=== PATIENT | male | born 1995 | race African-American/Black ===

== ENCOUNTER 2018-11-09 13:32 | Inpatient (IN) | payer MEDICARE ==
[2018-11-09] MEDS ORDERED: ASPIRIN 81 MG TABLET, CHEWABLE PO ONE (13:45)
[2018-11-09] MEDS ORDERED: ONDANSETRON 4 MG TAB.RAPDIS PO ONE (13:48)
--- NOTE | 2018-11-09 13:59 | ER Document Report ---
ED Medical Screen (RME) - General Chief Complaint: Abdominal Pain Stated Complaint: STOMACH PAIN/VOMITING / HIGH BLOOD SUGAR Time Seen by Provider: 11/09/18 13:48 Mode of Arrival: Wheelchair Information source: Patient, Relative Notes: 23-year-old male presented to ED for shortness of breath diaphoresis upper abdominal pain. He has a history of pancreatitis diabetes type 1 and AK in June which is a learning disability. He is with his sister. He is here visiting his sister while her is deployed. He states he has a long history of pancreatitis and ends up in the hospital about every 6 months. He has not had any surgeries. He does live with his mother due to his disabilities. Patient is alert oriented respirations regular and unlabored speaking in full sentences at this time. I have greeted and performed a rapid initial assessment of this patient. A comprehensive ED assessment and evaluation of the patient, analysis of test results and completion of medical decision making process will be conducted by an additional ED providers. Physical Exam - Vital signs Vitals: Temp Pulse Resp BP Pulse Ox 97.9 F 127 H 18 135/109 H 97 11/09/18 13:42 11/09/18 13:42 11/09/18 13:42 11/09/18 13:42 11/09/18 13:42 Course - Vital Signs Vital signs: Temp Pulse Resp BP Pulse Ox 97.9 F 127 H 18 135/109 H 97 11/09/18 13:42 11/09/18 13:42 11/09/18 13:42 11/09/18 13:42 11/09/18 13:42
[2018-11-09] MEDS ORDERED: NORMAL SALINE 1000 ML 1,000 ML IV ONE ×4 (14:24→18:06)
[2018-11-09] MEDS ORDERED: MORPHINE SULFATE 10 MG/ML INJ IV ONE (14:48)
[2018-11-09] MEDS ORDERED: ONDANSETRON HCL INJ/PF 4 MG/2 ML SDV IV ONE (14:48)
[2018-11-09 14:51] LABS: ABSOLUTE LYMPHOCYTES (AUTO) 1.8 10^3/uL (0.5-4.7); ABSOLUTE MONOCYTES (AUTO) 0.7 10^3/uL (0.1-1.4); ABSOLUTE NEUT (AUTO) 11.5 10^3/uL (1.7-8.2); BASOPHILS % (AUTO) 0.3 % (0-2); EOSINOPHILS % (AUTO) 0.2 % (0-6); HEMOGLOBIN 14.9 g/dL (13.5-17.0); LYMPHOCYTES % (AUTO) 12.8 % (13-45); MEAN CORPUSCULAR HEMOGLOBIN 26.1 pg (27.0-33.4); MEAN CORPUSCULAR HGB CONC 33.1 g/dL (32.0-36.0); MEAN CORPUSCULAR VOLUME 79 fl (80-97); MONOCYTES % (AUTO) 5.3 % (3-13); PLATELET COUNT 484 10^3/uL (150-450); RED BLOOD COUNT 5.71 10^6/uL (4.35-5.55); RED CELL DISTRIBUTION WIDTH 14.9 % (11.5-14.0); SEGMENTED NEUTROPHILS % (AUTO) 81.4 % (42-78); TOTAL CELLS COUNTED % (AUTO) 100 %; WHITE BLOOD COUNT 14.2 10^3/uL (4.0-10.5)
[2018-11-09 14:53] LABS: VENOUS BLOOD BASE EXCESS -7.9 mmol/L; VENOUS BLOOD HCO3 17.4 mmol/L (20-32); VENOUS BLOOD PCO2 35.3 mmHg (35-63); VENOUS BLOOD PH 7.31 (7.30-7.42)
[2018-11-09 15:00] LABS: INTERNATIONAL RATION (INR) 1.03; PROTHROMBIN TIME 13.6 SEC (11.4-15.4)
[2018-11-09 15:01] LABS: PARTIAL THROMBOPLASTIN TIME 31.9 SEC (23.5-35.8)
[2018-11-09 15:12] LABS: ALBUMIN 5.2 g/dL (3.5-5.0); ALKALINE PHOSPHATASE 121 U/L (38-126); ASPARTATE AMINO TRANSFERASE 19 U/L (17-59); BILIRUBIN,DIRECT 0.2 mg/dL (0.0-0.4); BILIRUBIN,TOTAL 0.7 mg/dL (0.2-1.3); BLOOD UREA NITROGEN 14 mg/dL (7-20); CALCIUM 10.7 mg/dL (8.4-10.2); CARBON DIOXIDE 14 mmol/L (22-30); CHLORIDE 92 mmol/L (98-107); CREATINE KINASE 117 U/L (55-170); POTASSIUM 5.3 mmol/L (3.6-5.0); TOTAL PROTEIN 9.7 g/dL (6.3-8.2)
[2018-11-09 15:18] LABS: ANION GAP 29 (5-19)
[2018-11-09 15:19] LABS: GLUCOSE 599 mg/dL (75-110)
[2018-11-09 15:22] LABS: CREATINE KINASE MB 0.32 ng/mL (<4.55)
[2018-11-09 15:23] LABS: TROPONIN I < 0.012 ng/mL
--- NOTE | 2018-11-09 15:25 | RADIOLOGY REPORT (SQ) ---
EXAM DESCRIPTION: CHEST SINGLE VIEW COMPLETED DATE/TIME: 11/09/2018 3:17 pm REASON FOR STUDY: chest pain COMPARISON: None. EXAM PARAMETERS: NUMBER OF VIEWS: One view. TECHNIQUE: Single frontal radiographic view of the chest acquired. RADIATION DOSE: NA LIMITATIONS: None. FINDINGS: LUNGS AND PLEURA: Low lung volumes. No opacities, masses or pneumothorax. No pleural effu tisha. MEDIASTINUM AND HILAR STRUCTURES: No masses. Contour normal. HEART AND VASCULAR STRUCTURES: Heart normal in size. Normal vasculature. BONES: No acute findings. HARDWARE: None in the chest. OTHER: No other significant finding. IMPRESSION: LOW LUNG VOLUMES. NO ACUTE RADIOGRAPHIC FINDING IN THE CHEST. TECHNICAL DOCUMENTATION: JOB ID: [id number] [employer]- All Rights Reserved Reading location - IP/workstation name: [email or web address]
--- NOTE | 2018-11-09 15:32 | ER Document Report ---
ED General - General Chief Complaint: Abdominal Pain Stated Complaint: STOMACH PAIN/VOMITING / HIGH BLOOD SUGAR Time Seen by Provider: 11/09/18 13:48 Mode of Arrival: Wheelchair - HPI Notes: This is a 23-year-old gentleman who presents today with a complaint of "pancreatitis." He describes epigastric and right upper quadrant abdominal pain has been going on since earlier today. Also has had some nausea and vomiting and a slight nonproductive cough. Patient notes that he has history of hepatitis and gets flareups every now and then. Patient sister notes that they have been doing lots of exercising recently, including prolapse and abdominal crunches. She wonders if that is the cause of his pain. He denies any fever or chills. He denies any diarrhea or constipation. He describes his symptoms as moderate. There are no obvious aggravating or relieving factors. - Related Data Allergies/Adverse Reactions: No Known Allergies Allergy (Unverified 11/09/18 14:02) Past Medical History - General Information source: Patient, Relative - Social History Smoking Status: Never Smoker Frequency of alcohol use: None Drug Abuse: None Family History: Reviewed & Not Pertinent Patient has suicidal ideation: No Patient has homicidal ideation: No Review of Systems - Review of Systems Constitutional: denies: Fever Cardiovascular: denies: Chest pain, Palpitations Respiratory: Cough Gastrointestinal: Abdominal pain, Nausea. denies: Diarrhea, Vomiting, Constipation -: Yes All other systems reviewed and negative Physical Exam - Vital signs Vitals: Temp Pulse Resp BP Pulse Ox 97.9 F 127 H 18 135/109 H 97 11/09/18 13:42 11/09/18 13:42 11/09/18 13:42 11/09/18 13:42 11/09/18 13:42 - General General appearance: Appears well, Alert - Respiratory Respiratory status: No respiratory distress Chest status: Nontender Breath sounds: Normal Chest palpation: Normal - Cardiovascular Rhythm: Regular, Tachycardia Heart sounds: Normal auscultation Murmur: No - Abdominal Inspection: Normal Distension: No distension Bowel sounds: Normal Tenderness: Tender - There is epigastric and right upper quadrant tenderness. No guarding or rebound.. No: McBurney's point, Guarding, Rebound Organomegaly: No organomegaly - Back Back: Normal, Nontender - Neurological Neuro grossly intact: Yes Cognition: Normal Orientation: AAOx4 Connor Coma Scale Eye Opening: Spontaneous [place] Coma Scale Verbal: Oriented [place] Coma Scale Motor: Obeys Commands Connor Coma Scale Total: 15 Speech: Normal Motor strength normal: LUE, RUE, LLE, RLE Sensory: Normal - Psychological Associated symptoms: Normal affect, Normal mood - Skin Skin Temperature: Warm Skin Moisture: Dry Skin Color: Normal Course - Re-evaluation Re-evalutation: 11/09/18 15:32 Differential diagnosis includes acute parotitis versus cholelithiasis versus cholecystitis versus DKA versus dehydration. Will check basic labs. Will also get a gallbladder ultrasound. EKG shows sinus tachycardia at [address] segment depression. No acute injury pattern. 11/09/18 17:18 Patient reevaluated. Patient is doing much better. Labs and imaging reviewed and discussed. Patient's care discussed with Dr. Montenegro. Will admit. - Vital Signs Vital signs: Temp Pulse Resp BP Pulse Ox 97.9 F 127 H 22 H 130/69 H 98 11/09/18 13:42 11/09/18 13:42 11/09/18 17:01 11/09/18 17:01 11/09/18 17:01 - Laboratory Result Diagrams: 11/09/18 14:30 11/09/18 14:30 Laboratory results interpreted by me: 11/09/18 11/09/18 11/09/18 14:24 14:30 14:30 WBC 14.2 H RBC 5.71 H MCV 79 L MCH 26.1 L RDW 14.9 H Plt Count 484 H Lymph % (Auto) 12.8 L Absolute Neuts (auto) 11.5 H Seg Neutrophils % 81.4 H VBG HCO3 Sodium 134.6 L Potassium 5.3 H Chloride 92 L Carbon Dioxide 14 L Anion Gap 29 H Creatinine 1.26 H Glucose 599 H* POC Glucose 537 H* Calcium 10.7 H Total Protein 9.7 H Albumin 5.2 H Lipase Urine Protein Urine Glucose (UA) Urine Ketones Urine Blood 11/09/18 11/09/18 11/09/18 14:30 14:30 14:59 WBC RBC MCV MCH RDW Plt Count Lymph % (Auto) Absolute Neuts (auto) Seg Neutrophils % VBG HCO3 17.4 L Sodium Potassium Chloride Carbon Dioxide Anion Gap Creatinine Glucose POC Glucose Calcium Total Protein Albumin Lipase 1823.5 H Urine Protein >=500 H Urine Glucose (UA) >=500 H Urine Ketones 80 H Urine Blood SMALL H 11/09/18 11/09/18 16:32 17:28 WBC RBC MCV MCH RDW Plt Count Lymph % (Auto) Absolute Neuts (auto) Seg Neutrophils % VBG HCO3 Sodium Potassium Chloride Carbon Dioxide Anion Gap Creatinine Glucose POC Glucose 466 H* 331 H Calcium Total Protein Albumin Lipase Urine Protein Urine Glucose (UA) Urine Ketones Urine Blood Discharge - Discharge Clinical Impression: Hyperglycemia Acute pancreatitis Qualifiers: Pancreatitis type: unspecified pancreatitis type Acute pancreatitis complicatio n: unspecified Qualified Code(s): K85.90 - Acute pancreatitis without necrosis or infection, unspecified Condition: Stable Disposition: ADMITTED INPATIENT Admitting Provider: Lan (Hospitalist) Unit Admitted: Telemetry
[2018-11-09] MEDS ORDERED: INSULIN REG, HUMAN 100 UNIT/ML 3 ML VIAL (PYX) IV ONE (15:44)
[2018-11-09 15:48] LABS: APPEARANCE,URINE CLEAR; BILIRUBIN,URINE NEGATIVE (NEGATIVE); COLOR,URINE YELLOW; GLUCOSE, URINE >=500 mg/dL (NEGATIVE); KETONES,URINE 80 mg/dL (NEGATIVE); LEUKOCYTE ESTERASE,URINE NEGATIVE (NEGATIVE); NITRITE,URINE NEGATIVE (NEGATIVE); PROTEIN,URINE >=500 mg/dL (NEGATIVE); URINE SPECIFIC GRAVITY 1.024; UROBILINOGEN,URINE NEGATIVE mg/dL (<2.0)
--- NOTE | 2018-11-09 16:52 | RADIOLOGY REPORT (SQ) ---
EXAM DESCRIPTION: U/S ABDOMEN LIMITED W/O DOP COMPLETED DATE/TIME: 11/09/2018 4:36 pm REASON FOR STUDY: RUQ pain ? choly COMPARISON: None. TECHNIQUE: Dynamic and static grayscale images acquired of the abdomen and recorded on PACS. Additio nal selected color Doppler and spectral images recorded. LIMITATIONS: None. FINDINGS: PANCREAS: Unable to visualize the pancreas due to overlying bowel gas LIVER: Increased echogenicity of the hepatic parenchyma. LIVER VASCULATURE: Unable to visualize the portal vein. GALLBLADDER: The gallbladder wall measures 2.3 mm in thickness. There is no pericholecystic fluid. There is questionable sludge within the gallbladder lumen. ULTRASOUND-DETECTED GONZALEZ'S SIGN: Positive. INTRAHEPATIC DUCTS AND COMMON DUCT: Unable to visualize the common bile duct. INFERIOR VENA CAVA: Unable to visualize the inferior vena cava. AORTA: No aneurysm. RIGHT KIDNEY: The right kidney measures 9.3 cm in length. There is no hydronephrosis. PERITONEAL AND RIGHT PLEURAL SPACE: No ascites or effusions. OTHER: No other findings. IMPRESSION: Limited right upper quadrant ultrasound in part due to the patient's body habitus and in creased echogenicity of the hepatic parenchyma that attenuates the ultrasound waves. The Gonzalez's si gn is positive, however there are no other ancillary findings to support a diagnosis of acute cholecy stitis such as gallbladder wall thickening or pericholecystic fluid. Given the limitations of the ul trasound if clinical findings are also equivocal for acute cholecystitis then correlation with HIDA i s recommended. TECHNICAL DOCUMENTATION: JOB ID: [id number] [employer]- All Rights Reserved Reading location - IP/workstation name: [email or web address]
[2018-11-09] MEDS ORDERED: ACETAMINOPHEN 325 MG TABLET PO PRN (18:00)
[2018-11-09] MEDS ORDERED: MAG HYDROX/AL HYDROX/SIMETH SUSP 30 ML UDCUP PO PRN (18:00)
[2018-11-09] MEDS ORDERED: GLUCAGON,HUMAN RECOMB 1 MG INJ SUBCUT PRN (18:00)
[2018-11-09] MEDS ORDERED: ONDANSETRON HCL INJ/PF 4 MG/2 ML SDV IV PRN (18:00)
[2018-11-09] MEDS ORDERED: DEXTROSE 50%-WATER 25 GM/50 ML DISP.SYRIN IV PRN ×2 (18:00)
[2018-11-09] MEDS ORDERED: DEXTROSE 40% GEL 15 GM TUBE PO PRN ×2 (18:00)
--- NOTE | 2018-11-09 18:36 | PDOC H&P ---
History of Present Illness Admission Date/PCP: 11/09/18 17:37 RONDA LOCKE MD Patient complains of: Abdominal pain, nausea and vomiting over the last 24 hours History of Present Illness: SUNITA SOLIS JR is a 23 year old male with a history of diabetes, hypertension, hyperlipidemia and chronic kidney failure who presents with epigastric abdominal pain, nausea and vomiting. He was noted to have an elevated lipase level at 1823. He has had pancreatitis in the past. He was not admitted to this hospital so no old records exist. He has received several liters of IV fluid and states that the pain is improved. His Accu-Chek was greater than 500 on admission as well. He was referred to the hospital service for admission. Past Medical History Cardiac Medical History: Reports: Myocardial Infarction, Hyperlipidema, H ypertension Pulmonary Medical History: Denies: Asthma, Chronic Obstructive Pulmonary Disease (COPD), Respiratory Failure EENT Medical History: Denies: Eyes, Ears, Nose, Throat Neurological Medical History: Denies: Hemorrhagic CVA, Ischemic CVA Endocrine Medical History: Reports: Diabetes Mellitus Type 1 Renal/ Medical History: Reports: Chronic Kidney Disease Malignancy Medical History: Reports: None GI Medical History: Reports: Other - Possible steatohepatitis Musculoskeltal Medical History: Denies: Arthritis, Fibromyalgia Skin Medical History: Reports: Other - Dry skin Denies: Eczema, Psoriasis Psychiatric Medical History: Reports: Other - Possible developmental delay Denies: Alcohol Dependency, Bipolar Disorder Traumatic Medical History: Reports: None Hematology: Denies: Anemia, Sickle Cell Disease, Bleeding Tendencies Infectious Medical History: Reports: None Past Surgical History Past Surgical History: Reports: Other - Gastroscopy Social History Information Source: Patient Lives with: Family - He lives with his uncle Smoking Status: Never Smoker Frequency of Alcohol Use: None Hx Recreational Drug Use: No Hx Prescription Drug Abuse: No - Advance Directive Resuscitation Status: Full Code Surrogate healthcare decision maker:: His mother would make medical decisions Family History Family History: Reviewed & Not Pertinent, DM, Hypertension Parental Family History Reviewed: Yes Children Family History Reviewed: NA Sibling(s) Family History Reviewed.: Yes Medication/Allergy Allergies/Adverse Reactions: No Known Allergies Allergy (Unverified 11/09/18 14:02) Review of Systems Constitutional: ABSENT: chills, fever(s), night sweats Eyes: ABSENT: visual disturbances Ears: ABSENT: hearing changes Nose, Mouth, and Throat: ABSENT: mouth pain, sore throat Cardiovascular: ABSENT: chest pain, edema, palpitations Respiratory: ABSENT: cough, dyspnea, hemoptysis, sputum Gastrointestinal: PRESENT: abdominal pain - Epigastric, diarrhea - Intermittent, nausea, vomiting. ABSENT: constipation, dysphagia Genitourinary: ABSENT: difficulty urinating, dysuria, hematuria Musculoskeletal: ABSENT: deformity, joint swelling, muscle weakness Integumentary: ABSENT: lesions Neurological: ABSENT: abnormal movements, abnormal speech, memory loss Psychiatric: ABSENT: anxiety, depression Endocrine: ABSENT: cold intolerance, flushing, heat intolerance Hematologic/Lymphatic: ABSENT: easy bleeding, easy bruising Allergic/Immunologic: ABSENT: seasonal rhinorrhea Physical Exam Vital Signs: Temp Pulse Resp BP Pulse Ox 97.9 F 127 H 22 H 130/69 H 98 11/09/18 13:42 11/09/18 13:42 11/09/18 17:01 11/09/18 17:01 11/09/18 17:01 Intake & Output 11/08/18 11/09/18 11/10/18 06:59 06:59 06:59 Intake Total 1999 Balance 1999 Weight 114.2 kg General appearance: PRESENT: no acute distress, cooperative, obese, well- developed Head exam: PRESENT: atraumatic, normocephalic Eye exam: PRESENT: conjunctiva pink, EOMI. ABSENT: scleral icterus Ear exam: PRESENT: normal external ear exam. ABSENT: bleeding, drainage Mouth exam: PRESENT: moist, tongue midline Teeth exam: ABSENT: dental tenderness, edentulous Respiratory exam: PRESENT: clear to auscultation kirt, symmetrical, unlabored. ABSENT: prolonged expiratory phas, rales, rhonchi, tachypnea, wheezes Cardiovascular exam: PRESENT: RRR, +S1, +S2 Pulses: PRESENT: normal radial pulses, normal dorsalis pedis pul GI/Abdominal exam: PRESENT: diminished bowel sounds, soft, tenderness - Across the upper abdomen especially the epigastrium. ABSENT: distended, firm, guarding Rectal exam: PRESENT: deferred Gentrourinary exam: ABSENT: indwelling catheter Extremities exam: PRESENT: full ROM. ABSENT: joint swelling, pedal edema, tenderness Musculoskeletal exam: PRESENT: ambulatory, normal inspection. ABSENT: deformity Neurological exam: PRESENT: alert, awake, oriented to person, oriented to place, oriented to situation, CN II-XII grossly intact Psychiatric exam: PRESENT: flat affect. ABSENT: agitated, anxious Focused psych exam: ABSENT: delusional, restlessness Skin exam: PRESENT: dry, warm. ABSENT: rash Results Laboratory Results: 11/09/18 14:30 11/09/18 14:30 11/09/18 11/09/18 11/09/18 14:30 14:30 14:30 WBC 14.2 H RBC 5.71 H Hgb 14.9 Hct 45.0 MCV 79 L MCH 26.1 L MCHC 33.1 RDW 14.9 H Plt Count 484 H Seg Neutrophils % 81.4 H VBG pH VBG pCO2 VBG HCO3 VBG Base Excess Sodium 134.6 L Potassium 5.3 H Chloride 92 L Carbon Dioxide 14 L Anion Gap 29 H BUN 14 Creatinine 1.26 H Est GFR ( Amer) > 60 Glucose 599 H* Calcium 10.7 H Magnesium 2.1 Total Bilirubin 0.7 AST 19 Alkaline Phosphatase 121 Total Protein 9.7 H Albumin 5.2 H Lipase TSH 4.39 Urine Color Urine Appearance Urine pH Ur Specific [place] Urine Protein Urine Glucose (UA) Urine Ketones Urine Blood Urine Nitrite Ur Leukocyte Esterase Urine WBC (Auto) Urine RBC (Auto) 11/09/18 11/09/18 11/09/18 14:30 14:30 14:59 WBC RBC Hgb Hct MCV MCH MCHC RDW Plt Count Seg Neutrophils % VBG pH 7.31 VBG pCO2 35.3 VBG HCO3 17.4 L VBG Base Excess -7.9 Sodium Potassium Chloride Carbon Dioxide Anion Gap BUN Creatinine Est GFR ( Amer) Glucose Calcium Magnesium Total Bilirubin AST Alkaline Phosphatase Total Protein Albumin Lipase 1823.5 H TSH Urine Color YELLOW Urine Appearance CLEAR Urine pH 6.0 Ur Specific [place] 1.024 Urine Protein >=500 H Urine Glucose (UA) >=500 H Urine Ketones 80 H Urine Blood SMALL H Urine Nitrite NEGATIVE Ur Leukocyte Esterase NEGATIVE Urine WBC (Auto) 2 Urine RBC (Auto) 0 11/09/18 11/09/18 14:30 14:30 Creatine Kinase 117 CK-MB (CK-2) 0.32 Troponin I < 0.012 Impressions: Chest X-Ray 11/09/18 13:45 IMPRESSION: LOW LUNG VOLUMES. NO ACUTE RADIOGRAPHIC FINDING IN THE CHEST. Abdomen Ultrasound 11/09/18 14:48 IMPRESSION: Limited right upper quadrant ultrasound in part due to the patient's body habitus and increased echogenicity of the hepatic parenchyma that attenuates the ultrasound waves. The Gonzalez's sign is positive, however there are no other ancillary findings to support a diagnosis of acute cholecystitis such as gallbladder wall thickening or pericholecystic fluid. Given the limitations of the ultrasound if clinical findings are also equivocal for acute cholecystitis then correlation with HIDA is recommended. Assessment and Plan - Diagnosis (1) Acute pancreatitis Qualifiers: Pancreatitis type: unspecified pancreatitis type Acute pancreatitis complication: unspecified Qualified Code(s): K85.90 - Acute pancreatitis without necrosis or infection, unspecified Is this a current diagnosis for this admission?: Yes Plan: 11/09/2018-the right upper quadrant ultrasound showed possible sludge in the gallbladder but the gallbladder wall was not thickened. There are no dilated ducts although visualization was suboptimal. There was increased echogenicity of the hepatic parenchyma. Bowel gas did not allow visualization of the pancreas. The patient did have an elevated lipase and slightly elevated white blood cell count. He reports that he has had pancreatitis in the past. We will keep the patient n.p.o. except for ice chips and sips of water with medication. IV fluid will be administered. We will recheck laboratory studies in the morning. (2) Diabetes mellitus type 1, uncontrolled Qualifiers: Glycemic state: with hyperglycemia Qualified Code(s): E10.65 - Type 1 diabetes mellitus with hyperglycemia Is this a current diagnosis for this admission?: Yes Plan: 11/09/2018-the patient is on insulin glargine 65 units twice daily. I will put him on a lower dose of Lantus (15 units twice daily) as he is n.p.o. He will also be on a sliding scale with Accu-Cheks every 6 hours. With a glucose of 500 it is very likely that his diabetes is poorly controlled. If his symptoms are improved we will start an oral diet tomorrow and increase his insulin glargine accordingly. He also takes NovoLog at home. We will use Humalog for sliding scale. (3) Hypertension Qualifiers: Hypertension type: essential hypertension Qualified Code(s): I10 - Essential (primary) hypertension Is this a current diagnosis for this admission?: Yes Plan: 11/09/2018-the patient is on amlodipine 5 mg daily and we will continue the same. We will monitor him on telemetry with vital signs every 4 hours. (4) Hyperlipidemia Qualifiers: Hyperlipidemia type: moderate mixed hyperlipidemia not requiring statin therapy Qualified Code(s): E78.2 - Mixed hyperlipidemia Is this a current diagnosis for this admission?: Yes Plan: 11/09/2018-continue atorvastatin 10 mg daily. The patient may have steatohepatitis due to increased echogenicity of the liver. This can be further worked up as an outpatient. (5) Tachycardia Is this a current diagnosis for this admission?: Yes Plan: 11/09/2018-most likely due to hypovolemia. With several liters of IV fluid his heart rate has improved and is between 101 110 at this time. We will monitor him on telemetry. (6) Hyperkalemia Is this a current diagnosis for this admission?: Yes Plan: 11/09/2018-his potassium is only slightly elevated. With the aggressive fluid challenge this should dilute back into the normal range. We will check his serum potassium in the morning. (7) Chronic kidney disease, stage II (mild) Is this a current diagnosis for this admission?: Yes Plan: 11/09/2018-the patient reports that he follows with a kidney doctor. I will reach out to the local nephrology office tomorrow. I have no old laboratory studies to compare but at this time it is likely stage II chronic kidney disease with a GFR greater than 60. - Time Time Spent with patient: 35 or more minutes Medications reviewed and adjusted accordingly: Yes Anticipated discharge: Home Within: within 48 hours
[2018-11-09] MEDS ORDERED: MORPHINE SULFATE 10 MG/ML INJ IV PRN ×4 (20:26→20:39)
--- NOTE | 2018-11-09 20:52 | EKG REPORT ---
SEVERITY:- ABNORMAL ECG - SINUS TACHYCARDIA BORDERLINE Q WAVES IN INFERIOR LEADS INFERIOR Q WAVES, PROBABLY NORMAL VARIATION BORDERLINE T ABNORMALITIES, LATERAL LEADS BORDERLINE ST ELEVATION, ANTERIOR LEADS : Confirmed by: Itzel Irving MD 09-Nov-2018 20:52:29
[2018-11-09] MEDS ORDERED: ATORVASTATIN CALCIUM 10 MG TABLET PO SCH (22:00)
[2018-11-09] MEDS: HEPARIN SOD (PORCINE) 5,000 UNIT/ML 1 ML VIAL SUBCUT SCH (22:35)
[2018-11-09] MEDS: INSULIN GLARGINE,HUM.REC.ANLOG 1,000 UNIT/10 ML VIAL SUBCUT SCH (22:36)
[2018-11-09] MEDS: INSULIN LISPRO 100 UNIT/ML 3 ML VIAL SUBCUT SCH (23:56)
[2018-11-10 04:29] LABS: BLOOD UREA NITROGEN 11 mg/dL (7-20); CALCIUM 9.6 mg/dL (8.4-10.2); CHLORIDE 103 mmol/L (98-107); GLUCOSE 209 mg/dL (75-110)
[2018-11-10 04:36] LABS: ANION GAP 13 (5-19)
[2018-11-10 04:38] LABS: CARBON DIOXIDE 23 mmol/L (22-30); POTASSIUM 4.2 mmol/L (3.6-5.0); TRIGLYCERIDES 1427 mg/dL (<150)
[2018-11-10 04:39] LABS: DIRECT LDL 46 mg/dL (<100)
[2018-11-10] MEDS: HEPARIN SOD (PORCINE) 5,000 UNIT/ML 1 ML VIAL SUBCUT SCH ×3 (06:04→22:06)
[2018-11-10] MEDS: PANTOPRAZOLE SODIUM 40 MG TABLET.DR PO SCH (06:05)
[2018-11-10] MEDS: INSULIN LISPRO 100 UNIT/ML 3 ML VIAL SUBCUT SCH ×4 (06:05→23:49)
--- NOTE | 2018-11-10 10:19 | PDOC PROGRESS REPORT ---
Subjective Progress Note for:: 11/10/18 Subjective:: Patient is feeling much better. I will advance his diet. He has marked hypertriglyceridemia and this is the most likely cause of his recurrent pancreatitis. Reason For Visit: PANCREATITIS Physical Exam Vital Signs: Temp Pulse Resp BP Pulse Ox 97.4 F 85 18 133/54 H 95 11/10/18 04:07 11/10/18 07:00 11/10/18 04:07 11/10/18 04:07 11/10/18 04:07 Intake & Output 11/09/18 11/10/18 11/11/18 06:59 06:59 06:59 Intake Total 3520 Output Total 580 Balance 2940 Weight 101.2 kg General appearance: PRESENT: no acute distress, cooperative, well-developed Head exam: PRESENT: atraumatic, normocephalic Respiratory exam: PRESENT: clear to auscultation kirt, symmetrical, unlabored. ABSENT: rales, rhonchi, tachypnea, wheezes Cardiovascular exam: PRESENT: RRR, +S1, +S2 GI/Abdominal exam: PRESENT: normal bowel sounds, soft. ABSENT: distended, tenderness Extremities exam: ABSENT: joint swelling, pedal edema Musculoskeletal exam: PRESENT: ambulatory, normal inspection Neurological exam: PRESENT: alert, awake, oriented to person, oriented to place, oriented to situation, CN II-XII grossly intact Psychiatric exam: PRESENT: flat affect. ABSENT: agitated, anxious Focused psych exam: ABSENT: delusional, restlessness Results Laboratory Results: 11/10/18 07:06 11/10/18 03:46 11/09/18 11/09/18 11/09/18 14:30 14:30 14:30 WBC 14.2 H RBC 5.71 H Hgb 14.9 Hct 45.0 MCV 79 L MCH 26.1 L MCHC 33.1 RDW 14.9 H Plt Count 484 H Seg Neutrophils % 81.4 H VBG pH VBG pCO2 VBG HCO3 VBG Base Excess Sodium 134.6 L Potassium 5.3 H Chloride 92 L Carbon Dioxide 14 L Anion Gap 29 H BUN 14 Creatinine 1.26 H Est GFR ( Amer) > 60 Glucose 599 H* Calcium 10.7 H Magnesium 2.1 Total Bilirubin 0.7 AST 19 Alkaline Phosphatase 121 Total Protein 9.7 H Albumin 5.2 H Triglycerides Cholesterol LDL Cholesterol Direct HDL Cholesterol Lipase TSH 4.39 Urine Color Urine Appearance Urine pH Ur Specific [place] Urine Protein Urine Glucose (UA) Urine Ketones Urine Blood Urine Nitrite Ur Leukocyte Esterase Urine WBC (Auto) Urine RBC (Auto) 11/09/18 11/09/18 11/09/18 14:30 14:30 14:59 WBC RBC Hgb Hct MCV MCH MCHC RDW Plt Count Seg Neutrophils % VBG pH 7.31 VBG pCO2 35.3 VBG HCO3 17.4 L VBG Base Excess -7.9 Sodium Potassium Chloride Carbon Dioxide Anion Gap BUN Creatinine Est GFR ( Amer) Glucose Calcium Magnesium Total Bilirubin AST Alkaline Phosphatase Total Protein Albumin Triglycerides Cholesterol LDL Cholesterol Direct HDL Cholesterol Lipase 1823.5 H TSH Urine Color YELLOW Urine Appearance CLEAR Urine pH 6.0 Ur Specific [place] 1.024 Urine Protein >=500 H Urine Glucose (UA) >=500 H Urine Ketones 80 H Urine Blood SMALL H Urine Nitrite NEGATIVE Ur Leukocyte Esterase NEGATIVE Urine WBC (Auto) 2 Urine RBC (Auto) 0 11/10/18 11/10/18 11/10/18 03:46 03:46 07:06 WBC Cancelled 7.9 RBC Cancelled 4.72 Hgb Cancelled 12.2 L D Hct Cancelled 36.3 L MCV Cancelled 77 L MCH Cancelled 25.9 L MCHC Cancelled 33.6 RDW Cancelled 14.8 H Plt Count Cancelled 354 Seg Neutrophils % 54.8 VBG pH VBG pCO2 VBG HCO3 VBG Base Excess Sodium 138.6 Potassium 4.2 D Chloride 103 Carbon Dioxide 23 Anion Gap 13 BUN 11 Creatinine 0.79 Est GFR ( Amer) > 60 Glucose 209 H Calcium 9.6 Magnesium Total Bilirubin AST Alkaline Phosphatase Total Protein Albumin Triglycerides 1427 H Cholesterol 293.80 H LDL Cholesterol Direct 46 HDL Cholesterol 25 L Lipase 782.9 H TSH Urine Color Urine Appearance Urine pH Ur Specific [place] Urine Protein Urine Glucose (UA) Urine Ketones Urine Blood Urine Nitrite Ur Leukocyte Esterase Urine WBC (Auto) Urine RBC (Auto) 11/09/18 11/09/18 14:30 14:30 Creatine Kinase 117 CK-MB (CK-2) 0.32 Troponin I < 0.012 Impressions: Chest X-Ray 11/09/18 13:45 IMPRESSION: LOW LUNG VOLUMES. NO ACUTE RADIOGRAPHIC FINDING IN THE CHEST. Abdomen Ultrasound 11/09/18 14:48 IMPRESSION: Limited right upper quadrant ultrasound in part due to the patient's body habitus and increased echogenicity of the hepatic parenchyma that attenuates the ultrasound waves. The Gonzalez's sign is positive, however there a re no other ancillary findings to support a diagnosis of acute cholecystitis such as gallbladder wall thickening or pericholecystic fluid. Given the limitations of the ultrasound if clinical findings are also equivocal for acute cholecystitis then correlation with HIDA is recommended. Assessment and Plan - Diagnosis (1) Acute pancreatitis Qualifiers: Pancreatitis type: unspecified pancreatitis type Acute pancreatitis complication: unspecified Qualified Code(s): K85.90 - Acute pancreatitis without necrosis or infection, unspecified Is this a current diagnosis for this admission?: Yes (2) Diabetes mellitus type 1, uncontrolled Qualifiers: Glycemic state: with hyperglycemia Qualified Code(s): E10.65 - Type 1 diabetes mellitus with hyperglycemia Is this a current diagnosis for this admission?: Yes (3) Hypertension Qualifiers: Hypertension type: essential hypertension Qualified Code(s): I10 - Essential (primary) hypertension Is this a current diagnosis for this admission?: Yes (4) Hyperlipidemia Qualifiers: Hyperlipidemia type: moderate mixed hyperlipidemia not requiring statin therapy Qualified Code(s): E78.2 - Mixed hyperlipidemia Is this a current diagnosis for this admission?: Yes (5) Tachycardia Is this a current diagnosis for this admission?: Yes (6) Hyperkalemia Is this a current diagnosis for this admission?: Yes (7) Chronic kidney disease, stage II (mild) Is this a current diagnosis for this admission?: Yes - Plan Summary Summary: The patient's lipase is improved by 50%. He has no more pain. I will start a diabetic cardiac diet. Lipid panel revealed marked hypertriglyceridemia with triglyceride levels 1400. I have increased his atorvastatin and added TriCor. Other therapy options would include a pheresis but at this point I think a more conservative approach is reasonable. We will continue insulin management of his diabetes and adjust medications based on changes from starting an oral diet. - Time Time Spent with patient: 15-24 minutes Medications reviewed and adjusted accordingly: Yes Anticipated discharge: Home
[2018-11-10] MEDS: AMLODIPINE BESYLATE 5 MG TABLET PO SCH (10:39)
[2018-11-10] MEDS: INSULIN GLARGINE,HUM.REC.ANLOG 1,000 UNIT/10 ML VIAL SUBCUT SCH ×2 (11:36→22:07)
[2018-11-10] MEDS ORDERED: ATORVASTATIN CALCIUM 40 MG TABLET PO SCH (22:00)
[2018-11-11] MEDS: HEPARIN SOD (PORCINE) 5,000 UNIT/ML 1 ML VIAL SUBCUT SCH (05:53)
[2018-11-11] MEDS: INSULIN LISPRO 100 UNIT/ML 3 ML VIAL SUBCUT SCH (05:54)
[2018-11-11] MEDS: PANTOPRAZOLE SODIUM 40 MG TABLET.DR PO SCH (05:55)
--- NOTE | 2018-11-11 09:02 | PDOC DISCHARGE SUMMARY ---
Impression - Admit/DC Date/PCP Admission Date/Primary Care Provider: 11/09/18 17:42 RONDA LOCKE MD Discharge Date: 11/11/18 - Discharge Diagnosis (1) Acute pancreatitis Is this a current diagnosis for this admission?: Yes (2) Diabetes mellitus type 1, uncontrolled Is this a current diagnosis for this admission?: Yes (3) Hypertension Is this a current diagnosis for this admission?: Yes (4) Hyperlipidemia Is this a current diagnosis for this admission?: Yes (5) Tachycardia Is this a current diagnosis for this admission?: Yes (6) Hyperkalemia Is this a current diagnosis for this admission?: Yes (7) Chronic kidney disease, stage II (mild) Is this a current diagnosis for this admission?: Yes - Assessment Summary: The patient's lipase is improved by 50%. He has no more pain. I will start a diabetic cardiac diet. Lipid panel revealed marked hypertriglyceridemia with triglyceride levels 1400. I have increased his atorvastatin and added TriCor. Other therapy options would include a pheresis but at this point I think a more conservative approach is reasonable. We will continue insulin management of his diabetes and adjust medications based on changes from starting an oral diet. - Additional Information Resuscitation Status: Full Code Discharge Diet: Cardiac, Diabetic Referrals: RONDA LOCKE MD [Primary Care Provider] - 11/18/18 3:15 pm (Needs follow-up next week) Prescriptions: Atorvastatin Calcium [Lipitor 40 mg Tablet] 40 mg PO QHS 14 Days #14 tablet Fenofibrate Nanocrystallized [Tricor 145 mg Tablet] 145 mg PO DAILY 14 Days #14 tablet Home Medications: Amlodipine Besylate [Norvasc 5 mg Tablet] 5 mg PO DAILY 11/09/18 Insulin Aspart [Novolog] See Protocol SQ MEALS 11/09/18 Insulin Glargine,Hum.rec.anlog [Basaglar Kwikpen U-100] 65 units SQ QHS 11/09/18 Acetaminophen [Tylenol 325 mg Tablet] 650 mg PO Q4HP PRN tablet 11/11/18 Amlodipine Besylate [Norvasc 5 mg Tablet] 5 mg PO DAILY tablet 11/11/18 Atorvastatin Calcium [Lipitor 40 mg Tablet] 40 mg PO QHS 14 Days #14 tablet 11/11/18 Fenofibrate Nanocrystallized [Tricor 145 mg Tablet] 145 mg PO DAILY 14 Days #14 tablet 11/11/18 History of Present Illiness History of Present Illness: SUNITA SOLIS JR is a 23 year old male with a history of diabetes, hypertension, hyperlipidemia and chronic kidney failure who presents with epigastric abdominal pain, nausea and vomiting. He was noted to have an elevated lipase level at 1823. He has had pancreatitis in the past. He was not admitted to this hospital so no old records exist. He has received several liters of IV fluid and states that the pain is improved. His Accu-Chek was greater than 500 on admission as well. He was referred to the hospital service for admission. Hospital Course Hospital Course: The patient had a relatively unremarkable hospital course. It was noted that his lipase was 1400. This is the cause of his recurrent pancreatitis. There did not appear to be any other endorgan damage and therefore he increased his atorvastatin to 40 mg daily and added TriCor daily. He needs to pay close attention to a low-fat diabetic diet. We will schedule a follow-up with his primary care provider. He should have a lipid profile in 8 to 10 weeks or sooner if clinically indicated. 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 I will defer to his primary care provider. Physical Exam Vital Signs: Temp Pulse Resp BP Pulse Ox 97.9 F 84 17 152/95 H 97 11/11/18 07:17 11/11/18 07:17 11/11/18 07:17 11/11/18 07:17 11/11/18 07:17 Intake & Output 11/10/18 11/11/18 11/12/18 06:59 06:59 06:59 Intake Total 3520 1376 Output Total 580 600 Balance 2940 776 Weight 101.2 kg 102.6 kg General appearance: PRESENT: no acute distress, cooperative, well-developed Head exam: PRESENT: atraumatic, normocephalic Respiratory exam: PRESENT: symmetrical, unlabored. ABSENT: tachypnea, wheezes Cardiovascular exam: PRESENT: RRR, +S1, +S2 GI/Abdominal exam: PRESENT: normal bowel sounds, soft. ABSENT: distended, tenderness Neurological exam: PRESENT: alert, awake, oriented to person, oriented to place Psychiatric exam: ABSENT: agitated, anxious Results Laboratory Results: WBC 7.9 10^3/uL (4.0-10.5) 11/10/18 07:06 RBC 4.72 10^6/uL (4.35-5.55) 11/10/18 07:06 Hgb 12.2 g/dL (13.5-17.0) L D 11/10/18 07:06 Hct 36.3 % (37.9-51.0) L 11/10/18 07:06 MCV 77 fl (80-97) L 11/10/18 07:06 MCH 25.9 pg (27.0-33.4) L 11/10/18 07:06 MCHC 33.6 g/dL (32.0-36.0) 11/10/18 07:06 RDW 14.8 % (11.5-14.0) H 11/10/18 07:06 Plt Count 354 10^3/uL (150-450) 11/10/18 07:06 Lymph % (Auto) 34.9 % (13-45) 11/10/18 07:06 [place] % (Auto) 8.3 % (3-13) 11/10/18 07:06 Eos % (Auto) 1.3 % (0-6) 11/10/18 07:06 Baso % (Auto) 0.7 % (0-2) 11/10/18 07:06 Absolute Neuts (auto) 4.4 10^3/uL (1.7-8.2) 11/10/18 07:06 Absolute Lymphs (auto) 2.8 10^3/uL (0.5-4.7) 11/10/18 07:06 Absolute Monos (auto) 0.7 10^3/uL (0.1-1.4) 11/10/18 07:06 Absolute Eos (auto) 0.1 10^3/uL (0.0-0.6) 11/10/18 07:06 Absolute Basos (auto) 0.1 10^3/uL (0.0-0.2) 11/10/18 07:06 Seg Neutrophils % 54.8 % (42-78) 11/10/18 07:06 Platelet Estimate Cancelled 11/10/18 03:46 PT 13.6 SEC (11.4-15.4) 11/09/18 14:30 INR 1.03 11/09/18 14:30 APTT 31.9 SEC (23.5-35.8) 11/09/18 14:30 VBG pH 7.31 (7.30-7.42) 11/09/18 14:30 VBG pCO2 35.3 mmHg (35-63) 11/09/18 14:30 VBG HCO3 17.4 mmol/L (20-32) L 11/09/18 14:30 VBG Base Excess -7.9 mmol/L 11/09/18 14:30 Sodium 138.6 mmol/L (137-145) 11/10/18 03:46 Potassium 4.2 mmol/L (3.6-5.0) D 11/10/18 03:46 Chloride 103 mmol/L (98-107) 11/10/18 03:46 Carbon Dioxide 23 mmol/L (22-30) 11/10/18 03:46 Anion Gap 13 (5-19) 11/10/18 03:46 BUN 11 mg/dL (7-20) 11/10/18 03:46 Creatinine 0.79 mg/dL (0.52-1.25) 11/10/18 03:46 Est GFR ( Amer) > 60 (>60) 11/10/18 03:46 Est GFR (MDRD) Non-Af > 60 (>60) 11/10/18 03:46 Glucose 209 mg/dL (75-110) H 11/10/18 03:46 POC Glucose 247 mg/dL (70-110) H 11/11/18 05:34 Calcium 9.6 mg/dL (8.4-10.2) 11/10/18 03:46 Magnesium 2.1 mg/dL (1.6-2.3) 11/09/18 14:30 Total Bilirubin 0.7 mg/dL (0.2-1.3) 11/09/18 14:30 Direct Bilirubin 0.2 mg/dL (0.0-0.4) 11/09/18 14:30 Neonat Total Bilirubin Not Reportable 11/09/18 14:30 Neonat Direct Bilirubin Not Reportable 11/09/18 14:30 Neonat Indirect Bili Not Reportable 11/09/18 14:30 AST 19 U/L (17-59) 11/09/18 14:30 ALT 40 U/L (<50) 11/09/18 14:30 Alkaline Phosphatase 121 U/L (38-126) 11/09/18 14:30 Creatine Kinase 117 U/L (55-170) 11/09/18 14:30 CK-MB (CK-2) 0.32 ng/mL (<4.55) 11/09/18 14:30 Troponin I < 0.012 ng/mL 11/09/18 14:30 Total Protein 9.7 g/dL (6.3-8.2) H 11/09/18 14:30 Albumin 5.2 g/dL (3.5-5.0) H 11/09/18 14:30 Triglycerides 1427 mg/dL (<150) H 11/10/18 03:46 Cholesterol 293.80 mg/dL (0-200) H 11/10/18 03:46 LDL Cholesterol Direct 46 mg/dL (<100) 11/10/18 03:46 VLDL Cholesterol, Calc UNABLE TO CALCULATE 11/10/18 03:46 HDL Cholesterol 25 mg/dL (>40) L 11/10/18 03:46 Lipase 782.9 U/L (23-300) H 11/10/18 03:46 TSH 4.39 uIU/mL (0.47-4.68) 11/09/18 14:30 Urine Color YELLOW 11/09/18 14:59 Urine Appearance CLEAR 11/09/18 14:59 Urine pH 6.0 (5.0-9.0) 11/09/18 14:59 Ur Specific [place] 1.024 11/09/18 14:59 Urine Protein >=500 mg/dL (NEGATIVE) H 11/09/18 14:59 Urine Glucose (UA) >=500 mg/dL (NEGATIVE) H 11/09/18 14:59 Urine Ketones 80 mg/dL (NEGATIVE) H 11/09/18 14:59 Urine Blood SMALL (NEGATIVE) H 11/09/18 14:59 Urine Nitrite NEGATIVE (NEGATIVE) 11/09/18 14:59 Urine Bilirubin NEGATIVE (NEGATIVE) 11/09/18 14:59 Urine Urobilinogen NEGATIVE mg/dL (<2.0) 11/09/18 14:59 Ur Leukocyte Esterase NEGATIVE (NEGATIVE) 11/09/18 14:59 Urine WBC (Auto) 2 /HPF 11/09/18 14:59 Urine RBC (Auto) 0 /HPF 11/09/18 14:59 Squamous Epi Cells Auto 1 /HPF 11/09/18 14:59 Urine Ascorbic Acid NEGATIVE (NEGATIVE) 11/09/18 14:59 Slides for Path Review Cancelled 11/10/18 03:46 11/09/18 14:30 CK-MB (CK-2) 0.32 Troponin I < 0.012 Impressions: Chest X-Ray 11/09/18 13:45 IMPRESSION: LOW LUNG VOLUMES. NO ACUTE RADIOGRAPHIC FINDING IN THE CHEST. Abdomen Ultrasound 11/09/18 14:48 IMPRESSION: Limited right upper quadrant ultrasound in part due to the patient's body habitus and increased echogenicity of the hepatic parenchyma that attenuates the ultrasound waves. The Gonzalez's sign is positive, however there a re no other ancillary findings to support a diagnosis of acute cholecystitis such as gallbladder wall thickening or pericholecystic fluid. Given the limitations of the ultrasound if clinical findings are also equivocal for acute cholecystitis then correlation with HIDA is recommended. Plan Health Concerns: Concern is the markedly elevated triglyceride level. More aggressive therapy including medication and diet are required. When triglyceride levels improve which should eliminate recurrent pancreatitis. Plan of Treatment: Increased atorvastatin and addition of TriCor Goals: Weight loss, normal triglyceride level and good control of diabetes Time Spent: Greater than 30 Minutes Stroke Is this a Stroke Patient?: No Acute Heart Failure - Is this a Heart Failure Patient?: No
[2018-11-11] MEDS: AMLODIPINE BESYLATE 5 MG TABLET PO SCH (09:38)
[2018-11-11] MEDS ORDERED: FENOFIBRATE NANOCRYSTALLIZED 145 MG TABLET PO SCH (10:00)
[2018-11-11] MEDS ORDERED: INFLUENZA QUAD (6MOS+) 2019-20 VAC 0.5 ML SYR IM ONE (10:00)
[2018-11-11] MEDS ORDERED: INSULIN GLARGINE,HUM.REC.ANLOG 1,000 UNIT/10 ML VIAL SUBCUT SCH (10:00)
[2018-11-11] MEDS ORDERED: ONDANSETRON HCL INJ/PF 4 MG/2 ML SDV IV PRN (11:00)
[2018-11-11 12:15] VITALS: BP 149/80
[2018-11-11 14:41] LABS: HEMATOCRIT 36.3 % (37.9-51.0); HEMOGLOBIN 12.2 g/dL (13.5-17.0); MEAN CORPUSCULAR HEMOGLOBIN 25.9 pg (27.0-33.4); MEAN CORPUSCULAR HGB CONC 33.6 g/dL (32.0-36.0); MEAN CORPUSCULAR VOLUME 77 fl (80-97); PLATELET COUNT 354 10^3/uL (150-450); RED BLOOD COUNT 4.72 10^6/uL (4.35-5.55); RED CELL DISTRIBUTION WIDTH 14.8 % (11.5-14.0); WHITE BLOOD COUNT 7.9 10^3/uL (4.0-10.5)
== END 2018-11-11 12:45 | disposition home or self-care (01) | DRG 440 ==
LOC: ER 13:32 → INTOOBSV 17:37 → EH 17:37 → OBSVTOIN 17:42 → 4N 18:49 → OBSVTOIN 11-10 08:51 → INTOOBSV 11-10 08:51 → 4N 11-10 18:36
PROVIDERS: ADMIT Hospitalist; ATTEND Hospitalist
PROC: 3E0234Z Introduction of Serum, Toxoid and Vaccine into Muscle, Percutaneous Approach (ICD-10-PCS; principal; 2018-11-11)
DX: K85.90 Acute pancreatitis without necrosis or infection, unspecified (principal); E78.5 Hyperlipidemia, unspecified; E10.65 Type 1 diabetes mellitus with hyperglycemia; N18.2 Chronic kidney disease, stage 2 (mild); E10.22 Type 1 diabetes mellitus with diabetic chronic kidney disease; I12.9 Hypertensive chronic kidney disease with stage 1 through stage 4 chronic kidney disease, or unspecified chronic kidney disease; E66.9 Obesity, unspecified; E78.2 Mixed hyperlipidemia; E78.1 Pure hyperglyceridemia; E87.5 Hyperkalemia; I25.2 Old myocardial infarction; Z23 Encounter for immunization; Z79.4 Long term (current) use of insulin; Z79.899 Other long term (current) drug therapy; Z83.3 Family history of diabetes mellitus; Z82.49 Family history of ischemic heart disease and other diseases of the circulatory system
CPT/HCPCS: 36415; 71045; 76705; 80048; 80053; 80061; 81001; 82550; 82553; 82803; 82962; 83690; 83735; 84443; 84484; 85025; 85027; 85610; 85730; 87040; 90686; 93005; 93010; 96361; 96374; 96375; 99285; J1644; J1815; J2270; J2405; J3490; J7030

== ENCOUNTER 2019-08-07 14:20 | Inpatient (IN) | payer MEDICARE ==
[2019-08-07 15:16] LABS: ALBUMIN 4.5 g/dL (3.5-5.0); ALKALINE PHOSPHATASE 147 U/L (38-126); ASPARTATE AMINO TRANSFERASE 29 U/L (17-59); BILIRUBIN,DIRECT 0.4 mg/dL (0.0-0.4); BILIRUBIN,TOTAL 0.7 mg/dL (0.2-1.3); BLOOD UREA NITROGEN 24 mg/dL (7-20); CALCIUM 10.6 mg/dL (8.4-10.2); POTASSIUM 5.4 mmol/L (3.6-5.0); TOTAL PROTEIN 9.9 g/dL (6.3-8.2)
[2019-08-07 15:20] LABS: APPEARANCE,URINE CLEAR; BILIRUBIN,URINE NEGATIVE (NEGATIVE); COLOR,URINE STRAW; GLUCOSE, URINE >=500 mg/dL (NEGATIVE); KETONES,URINE 80 mg/dL (NEGATIVE); LEUKOCYTE ESTERASE,URINE NEGATIVE (NEGATIVE); NITRITE,URINE NEGATIVE (NEGATIVE); PROTEIN,URINE >=500 mg/dL (NEGATIVE); URINE SPECIFIC GRAVITY 1.026; UROBILINOGEN,URINE NEGATIVE mg/dL (<2.0)
[2019-08-07 15:21] LABS: CHLORIDE 89 mmol/L (98-107)
[2019-08-07 15:23] LABS: ANION GAP 31 (5-19)
[2019-08-07 15:24] LABS: GLUCOSE 603 mg/dL (75-110)
[2019-08-07 15:25] LABS: CARBON DIOXIDE 9 mmol/L (22-30)
[2019-08-07 15:29] LABS: HEMATOCRIT 45.9 % (37.9-51.0); MEAN CORPUSCULAR VOLUME 79 fl (80-97); PLATELET COUNT 616 10^3/uL (150-450); RED BLOOD COUNT 5.81 10^6/uL (4.35-5.55); RED CELL DISTRIBUTION WIDTH 15.2 % (11.5-14.0); WHITE BLOOD COUNT 22.5 10^3/uL (4.0-10.5)
[2019-08-07] MEDS: NORMAL SALINE 1000 ML 1,000 ML IV PRN ×2 (15:45→16:48)
[2019-08-07 15:53] LABS: HEMOGLOBIN 15.4 g/dL (13.5-17.0); MEAN CORPUSCULAR HEMOGLOBIN 26.5 pg (27.0-33.4); MEAN CORPUSCULAR HGB CONC 33.5 g/dL (32.0-36.0)
[2019-08-07 15:58] LABS: ABSOLUTE LYMPHOCYTES# (MANUAL) 2.3 10^3/uL (0.5-4.7); ABSOLUTE MONOCYTES # (MANUAL) 0.9 10^3/uL (0.1-1.4); ANISOCYTOSIS 1+; BASOPHILS % (MANUAL) 1 % (0-2); EOSINOPHILS % (MANUAL) 0 % (0-6); LYMPHOCYTES % (MANUAL) 10 % (13-45); MONOCYTES % (MANUAL) 4 % (3-13); PLATELET COMMENT INCREASED; SEGMENTED NEUTROPHILS % (MAN) 85 % (42-78); TOTAL CELLS COUNTED 100
[2019-08-07] MEDS ORDERED: NORMAL SALINE 100 ML with INSULIN REGULAR, HUMAN 100 UNIT IV PRN ×2 (16:25)
[2019-08-07] MEDS ORDERED: MORPHINE SULFATE 10 MG/ML INJ IV ONE ×2 (16:26→17:40)
[2019-08-07] MEDS ORDERED: ONDANSETRON HCL INJ/PF 4 MG/2 ML SDV IV ONE (16:26)
--- NOTE | 2019-08-07 16:37 | ER Document Report ---
ED GI/ - General Chief Complaint: Abdominal Pain Stated Complaint: BLOOD SUGAR PROBLEMS Time Seen by Provider: 08/07/19 16:23 Primary Care Provider: RONDA LOCKE MD [Primary Care Provider] - Follow up as needed Notes: CHIEF COMPLAINT: Abdominal pain, vomiting HPI: 24-year-old insulin-dependent diabetic presenting with abdominal pain epigastric region with vomiting that began last night and today. Patient denies fever. Patient denies shortness of breath or chest pain. Patient states the pain feels similar to when he had pancreatitis. ROS: See HPI - all other systems were reviewed and are otherwise negative Constitutional: no fever Eyes: no drainage, no blurred vision ENT: no runny nose, no sore throat Cardiovascular: no chest pain Resp: no SOB, no cough GI: + vomiting, no diarrhea, + abdominal pain : no dysuria Integumentary: no rash Allergy: no hives Musculoskeletal: no extremity pain or swelling Neurological: no numbness/tingling, no weakness MEDICATIONS: I agree with the patient medications as charted by the RN. ALLERGIES: I agree with the allergies as charted by the RN. PAST MEDICAL HISTORY/PAST SURGICAL HISTORY: Reviewed and agree as charted by RN. SOCIAL HISTORY: Reviewed and agree as charted by RN. FAMILY HISTORY: No significant familial comorbid conditions directly related to patient complaint EXAM: Reviewed vital signs as charted by RN. CONSTITUTIONAL: Alert and oriented and responds appropriately to questions. Well-appearing; well-nourished HEAD: Normocephalic; atraumatic EYES: PERRL; Conjunctivae clear, sclerae non-icteric ENT: normal nose; no rhinorrhea; dry mucous membranes; pharynx without lesions noted, no uvula edema or deviation, no tonsillar hypertrophy, phonation normal NECK: Supple without meningismus; non-tender; no cervical lymphadenopathy, no masses CARD: Tachycardic; no murmurs, no clicks, no rubs, no gallops; symmetric distal pulses RESP: Normal chest excursion without splinting or tachypnea; breath sounds clear and equal bilaterally; no wheezes, no rhonchi, no rales, pulse oximetry 95% on room air not hypoxic ABD/GI: Normal bowel sounds; non-distended; soft, moderate tenderness through the epigastric region on palpation, no rebound, no guarding; no palpable organomegaly or masses. BACK: The back appears normal and is non-tender to palpation, there is no CVA tenderness EXT: Normal ROM in all joints; non-tender to palpation; no cyanosis, no effusions, no edema SKIN: Normal color for age and race; warm; dry; poor turgor; no acute lesions noted NEURO: Moves all extremities equally; Motor and sensory function intact PSYCH: The patient's mood and manner are appropriate. Grooming and personal hygiene are appropriate. MDM: 24-year-old male presenting for vomiting with epigastric pain. Screening labs are drawn by nursing protocol. Patient shows a CO2 of 9, blood glucose greater than 600, lipase greater than 1700. Likely with acute pancreatitis and DKA. Will add VBG, CT imaging. Patient will need admission. I have ordered aggressive hydration as well as insulin drip. TRAVEL OUTSIDE OF THE [place] IN LAST 30 DAYS: No - Related Data Allergies/Adverse Reactions: No Known Allergies Allergy (Unverified 11/09/18 14:02) Past Medical History - Social History Smoking Status: Never Smoker Frequency of alcohol use: None Drug Abuse: None Family History: Reviewed & Not Pertinent, DM, Hypertension Patient has homicidal ideation: No - Past Medical History Cardiac Medical History: Reports: Hx Heart Attack, Hx Hypercholesterolemia, Hx Hypertension Pulmonary Medical History: Denies: Hx Asthma, Hx COPD, Hx Respiratory Failure Endocrine Medical History: Reports: Hx Diabetes Mellitus Type 1 Musculoskeletal Medical History: Denies Hx Arthritis, Denies Hx Fibromyalgia Skin Medical History: Denies Hx Eczema, Denies Hx Psoriasis Psychiatric Medical History: Denies: Hx Bipolar Disorder Past Surgical History: Reports: Other - Gastroscopy Physical Exam - Vital signs Vitals: Resp Pulse Ox 19 96 08/07/19 14:26 08/07/19 14:26 Course - Re-evaluation Re-evalutation: 08/07/19 18:[address] Veras, Hospitalist. Case was discussed. Discussed lab work and imaging studies. Discussed medical management in the emergency department he will come down to see and admit the patient 08/07/19 18:18 I did add a troponin to the patient's initial lab work although he has absolutely no chest pain or shortness of breath given his DKA status want to ensure that there is no concern for ACS - Vital Signs Vital signs: Temp Pulse Resp BP Pulse Ox 98.0 F 25 H 165/100 H 90 L 08/07/19 14:27 08/07/19 16:44 08/07/19 16:44 08/07/19 16:44 - Laboratory Result Diagrams: 08/07/19 14:30 08/07/19 14:30 Laboratory results interpreted by me: 08/07/19 08/07/19 08/07/19 14:30 14:30 14:57 WBC 22.5 H RBC 5.81 H MCV 79 L MCH 26.5 L RDW 15.2 H Plt Count 616 H Seg Neuts % (Manual) 85 H Lymphocytes % (Manual) 10 L Abs Neuts (Manual) 19.1 H VBG pH VBG pCO2 VBG HCO3 Sodium 129.1 L Potassium 5.4 H Chloride 89 L Carbon Dioxide 9 L* Anion Gap 31 H BUN 24 H Creatinine 1.26 H Glucose 603 H* POC Glucose Calcium 10.6 H Alkaline Phosphatase 147 H Total Protein 9.9 H Lipase 1799.5 H Urine Protein >=500 H Urine Glucose (UA) >=500 H Urine Ketones 80 H Urine Blood MODERATE H 08/07/19 08/07/19 16:45 17:51 WBC RBC MCV MCH RDW Plt Count Seg Neuts % (Manual) Lymphocytes % (Manual) Abs Neuts (Manual) VBG pH 7.24 L VBG pCO2 33.0 L VBG HCO3 13.9 L Sodium Potassium Chloride Carbon Dioxide Anion Gap BUN Creatinine Glucose POC Glucose 480 H* Calcium Alkaline Phosphatase Total Protein Lipase Urine Protein Urine Glucose (UA) Urine Ketones Urine Blood Critical Care Note - Critical Care Note Total time excluding time spent on procedures (mins): 45 - DKA, acute pancreatitis, req Insulin drip, multiple meds and management Discharge - Discharge Clinical Impression: Tachycardia Acute pancreatitis Qualifiers: Pancreatitis type: unspecified pancreatitis type Acute pancreatitis complication: unspecified Qualified Code(s): K85.90 - Acute pancreatitis without necrosis or infection, unspecified DKA (diabetic ketoacidoses) Qualifiers: Diabetes mellitus type: type 1 Diabetes mellitus complication detail: without coma Qualified Code(s): E10.10 - Type 1 diabetes mellitus with ketoacidosis without coma Condition: Fair Disposition: ADMITTED INPATIENT Admitting Provider: Rito (Hospitalist) Unit Admitted: IMCU Referrals: RONDA LOCKE MD [Primary Care Provider] - Follow up as needed
[2019-08-07 16:57] LABS: VENOUS BLOOD BASE EXCESS -12.3 mmol/L; VENOUS BLOOD HCO3 13.9 mmol/L (20-32); VENOUS BLOOD PH 7.24 (7.30-7.42)
[2019-08-07] MEDS ORDERED: INSULIN REG, HUMAN 100 UNIT/ML 3 ML VIAL (PYX) ONE (17:45)
--- NOTE | 2019-08-07 18:10 | RADIOLOGY REPORT (SQ) ---
EXAM DESCRIPTION: CT ABD/PELVIS WITH IV ONLY IMAGES COMPLETED DATE/TIME: 08/07/2019 5:42 pm REASON FOR STUDY: pancreatitis COMPARISON: Right upper quadrant ultrasound 11/09/2018. TECHNIQUE: CT scan of the abdomen and pelvis performed using helical scanning technique with dynamic intravenous contrast injection. No oral contrast. Images reviewed with lung, soft tissue, and bone windows. Reconstructed coronal and sagittal MPR images reviewed. Delayed images for evaluation of the urinary system also acquired. All images stored on PACS. All CT scanners at this facility use dose modulation, iterative reconstruction, and/or weight based d osing when appropriate to reduce radiation dose to as low as reasonably achievable (ALARA). [facility]: Dose Right [facility]: CareDose [facility]: Dose Right [facility]: Teradose 4D [facility]: [facility] CONTRAST TYPE AND DOSE: contrast/concentration: Isovue mmol/ml; Total Contrast Delivered: 100.0 ml; Total Saline Delivered: 72.0 ml RENAL FUNCTION: Creatinine 1.26 RADIATION DOSE: CT Rad equipment meets quality standard of care and radiation dose reduction techniq ues were employed. CTDIvol: 15.1 - 19.0 mGy. DLP: 2100 mGy-cm.. LIMITATIONS: There is motion artifact. For FINDINGS: LOWER CHEST: No consolidation or pleural effusion. LIVER: There is diffuse decreased attenuation suggestive of fatty infiltration. The liver is enlarge d measuring 25.7 cm in craniocaudal diameter. No dilated ducts. SPLEEN: Normal size. PANCREAS: There is peripancreatic edema and soft tissue stranding. GALLBLADDER: No identified stones by CT criteria. No inflammatory changes to suggest cholecystitis. ADRENAL GLANDS: No significant masses or asymmetry. RIGHT KIDNEY AND URETER: No solid masses. No significant calcifications. No hydronephrosis or hyd roureter. LEFT KIDNEY AND URETER: No solid masses. No significant calcifications. No hydronephrosis or hydr oureter. AORTA AND VESSELS: No abdominal aortic aneurysm. RETROPERITONEUM: No retroperitoneal adenopathy, hemorrhage or masses. BOWEL AND PERITONEAL CAVITY: The evaluation of the bowel is degraded by motion artifact. No dilated bowel loops to suggest obstruction. No free air. Trace free fluid at the left upper quadrant adjace nt to the pancreas. APPENDIX: Normal. PELVIS: Partially distended urinary bladder. No pelvic mass. No free fluid. ABDOMINAL WALL: There is mild soft tissue stranding at the anterior are right abdominal wall, may be secondary to subcutaneous injection administration. There is a small fat containing umbilical hernia . BONES: No significant or acute findings. IMPRESSION: 1. Acute pancreatitis with trace free fluid at the left upper quadrant. 2. Hepatomegaly. Fatty infiltration of the liver. TECHNICAL DOCUMENTATION: JOB ID: [id number] Quality ID # [id number]: Final reports with documentation of one or more dose reduction techniques (e.g., Au tomated exposure control, adjustment of the mA and/or kV according to patient size, use of iterative reconstruction technique) 2010 [employer]- All Rights Reserved Reading location - IP/workstation name: [email or web address]
--- NOTE | 2019-08-07 18:34 | EKG REPORT ---
SEVERITY:- ABNORMAL ECG - SINUS TACHYCARDIA INFERIOR Q WAVES, PROBABLY NORMAL VARIATION NONSPECIFIC T ABNORMALITIES, LATERAL LEADS : Confirmed by: Ani Valero 07-Aug-2019 18:33:27
--- NOTE | 2019-08-07 18:44 | EKG REPORT ---
SEVERITY:- ABNORMAL ECG - SINUS TACHYCARDIA INFERIOR Q WAVES, PROBABLY NORMAL VARIATION NONSPECIFIC T ABNORMALITIES, INFERIOR LEADS BORDERLINE ST ELEVATION, ANTERIOR LEADS : Confirmed by: Ani Valero 07-Aug-2019 18:42:51
[2019-08-07] MEDS ORDERED: GLUCAGON,HUMAN RECOMB 1 MG INJ IM PRN (18:53)
[2019-08-07] MEDS ORDERED: GLUCAGON,HUMAN RECOMB 1 MG INJ SUBCUT PRN (18:53)
[2019-08-07] MEDS ORDERED: DEXTROSE 40% GEL 15 GM TUBE PO PRN ×4 (18:53)
[2019-08-07] MEDS ORDERED: DEXTROSE 50%-WATER 25 GM/50 ML DISP.SYRIN IV PRN ×4 (18:53)
[2019-08-07] MEDS ORDERED: ONDANSETRON HCL INJ/PF 4 MG/2 ML SDV IV PRN (18:57)
--- NOTE | 2019-08-07 19:30 | PDOC H&P ---
History of Present Illness Admission Date/PCP: 08/07/19 18:21 RONDA LOCKE MD History of Present Illness: SUNITA SOLIS JR is a 24 year old male with a history of insulin-dependent diabetes mellitus, hyperlipidemia, and an episode of pancreatitis in the past who presents with abdominal pain since this morning. He said his abdomen started hurting and has been a little nauseated. He said he has been taking his insulin and has not missed any doses. He has said that he has had some high readings on his insulin meter. He did not refer to numbers, but rather he referred to the color coding on his sliding scale. He said he had "some greens and some blues" but that he also had "some reds," which apparently is the high end of the scale. His affect was a little strange and perhaps a bit childlike. For example, when I asked him who his physician was, he said he did not know the name of his current doctor, and he kept referring to his previous doctor as "the kidchloé doctor." He had a constellation of laboratory findings consistent with diabetic ketoacidosis. His lipase was also elevated at greater than 1700. Past Medical History Cardiac Medical History: Reports: Myocardial Infarction, Hyperlipidema, Hypertension Pulmonary Medical History: Denies: Asthma, Chronic Obstructive Pulmonary Disease (COPD), Respiratory Failure Endocrine Medical History: Reports: Diabetes Mellitus Type 1 Musculoskeltal Medical History: Denies: Arthritis, Fibromyalgia Skin Medical History: Denies: Eczema, Psoriasis Psychiatric Medical History: Denies: Bipolar Disorder Hematology: Denies: Anemia, Sickle Cell Disease, Bleeding Tendencies Past Surgical History Past Surgical History: Reports: Other - Gastroscopy Social History Smoking Status: Never Smoker Frequency of Alcohol Use: None Hx Recreational Drug Use: No Hx Prescription Drug Abuse: No Family History Family History: Reviewed & Not Pertinent, DM, Hypertension Parental Family History Reviewed: No - He does not know Children Family History Reviewed: NA Sibling(s) Family History Reviewed.: No - He does not know Medication/Allergy Home Medications: Amlodipine Besylate [Norvasc 5 mg Tablet] 5 mg PO DAILY 11/09/18 Insulin Aspart [Novolog] See Protocol SQ MEALS 11/09/18 Insulin Glargine,Hum.rec.anlog [Basaglar Kwikpen U-100] 65 units SQ QHS 11/09/18 Acetaminophen [Tylenol 325 mg Tablet] 650 mg PO Q4HP PRN tablet 11/11/18 Amlodipine Besylate [Norvasc 5 mg Tablet] 5 mg PO DAILY tablet 11/11/18 Atorvastatin Calcium [Lipitor 40 mg Tablet] 40 mg PO QHS 14 Days #14 tablet 11/11/18 Fenofibrate Nanocrystallized [Tricor 145 mg Tablet] 145 mg PO DAILY 14 Days #14 tablet 11/11/18 Allergies/Adverse Reactions: No Known Allergies Allergy (Unverified 11/09/18 14:02) Review of Systems All systems: reviewed and no additional remarkable complaints except as stated - All systems were reviewed and were negative except as noted in the HPI Physical Exam Vital Signs: Temp Pulse Resp BP Pulse Ox 98.0 F 25 H 165/100 H 90 L 08/07/19 14:27 08/07/19 16:44 08/07/19 16:44 08/07/19 16:44 Intake & Output 08/06/19 08/07/19 08/08/19 06:59 06:59 06:59 Intake Total 1999 Balance 1999 Weight 113.398 kg General appearance: PRESENT: cooperative, disheveled, mild distress, morbidly obese Head exam: PRESENT: atraumatic, normocephalic Eye exam: PRESENT: EOMI, PERRLA. ABSENT: conjunctival injection, nystagmus, scleral icterus Ear exam: PRESENT: normal external ear exam Mouth exam: PRESENT: dry mucosa, neck supple, other - Breath was foul Throat exam: ABSENT: post pharyngeal erythema Neck exam: PRESENT: full ROM. ABSENT: carotid bruit, JVD, lymphadenopathy, meningismus, tenderness, thyromegaly Respiratory exam: PRESENT: clear to auscultation kirt, symmetrical, tachypnea - He appeared to have Kussmaul breathing. ABSENT: accessory muscle use, chest wall tenderness, crackles, prolonged expiratory phas, rhonchi, unlabored, wheezes Cardiovascular exam: PRESENT: +S1, +S2, tachycardia Pulses: PRESENT: normal carotid pulses Vascular exam: PRESENT: normal capillary refill GI/Abdominal exam: PRESENT: normal bowel sounds, soft, tenderness - Midepigastric. ABSENT: distended, guarding, rebound Extremities exam: PRESENT: other - His fingernails and toenails were very long and discolored. ABSENT: clubbing, pedal edema Musculoskeletal exam: PRESENT: normal inspection. ABSENT: deformity Neurological exam: PRESENT: awake, oriented to person, oriented to place, o riented to situation, CN II-XII grossly intact. ABSENT: motor sensory deficit Psychiatric exam: PRESENT: flat affect Skin exam: PRESENT: dry, warm Results Laboratory Results: 08/07/19 14:30 08/07/19 14:30 08/07/19 08/07/19 08/07/19 14:30 14:30 14:57 WBC 22.5 H RBC 5.81 H Hgb 15.4 Hct 45.9 MCV 79 L MCH 26.5 L MCHC 33.5 RDW 15.2 H Plt Count 616 H Seg Neutrophils % Not Reportable VBG pH VBG pCO2 VBG HCO3 VBG Base Excess Sodium 129.1 L Potassium 5.4 H Chloride 89 L Carbon Dioxide 9 L* Anion Gap 31 H BUN 24 H Creatinine 1.26 H Est GFR ( Amer) > 60 Glucose 603 H* Calcium 10.6 H Total Bilirubin 0.7 AST 29 Alkaline Phosphatase 147 H Total Protein 9.9 H Albumin 4.5 Lipase 1799.5 H Urine Color STRAW Urine Appearance CLEAR Urine pH 5.0 Ur Specific [place] 1.026 Urine Protein >=500 H Urine Glucose (UA) >=500 H Urine Ketones 80 H Urine Blood MODERATE H Urine Nitrite NEGATIVE Ur Leukocyte Esterase NEGATIVE Urine WBC (Auto) 1 Urine RBC (Auto) 1 08/07/19 16:45 WBC RBC Hgb Hct MCV MCH MCHC RDW Plt Count Seg Neutrophils % VBG pH 7.24 L VBG pCO2 33.0 L VBG HCO3 13.9 L VBG Base Excess -12.3 Sodium Potassium Chloride Carbon Dioxide Anion Gap BUN Creatinine Est GFR ( Amer) Glucose Calcium Total Bilirubin AST Alkaline Phosphatase Total Protein Albumin Lipase Urine Color Urine Appearance Urine pH Ur Specific [place] Urine Protein Urine Glucose (UA) Urine Ketones Urine Blood Urine Nitrite Ur Leukocyte Esterase Urine WBC (Auto) Urine RBC (Auto) Impressions: Abdomen/Pelvis CT 08/07/19 16:24 IMPRESSION: 1. Acute pancreatitis with trace free fluid at the left upper quadrant. 2. Hepatomegaly. Fatty infiltration of the liver. Assessment and Plan - Diagnosis (1) Acute pancreatitis Qualifiers: Pancreatitis type: other Acute pancreatitis complication: no infection or necrosis Qualified Code(s): K85.80 - Other acute pancreatitis without necrosis or infection Is this a current diagnosis for this admission?: Yes Plan: N.p.o. Copious IV fluids. Follow the trend in his lipase. Checking his t riglycerides. Holding his p.o. medicines for now. (2) DKA (diabetic ketoacidoses) Qualifiers: Diabetes mellitus type: type 1 Diabetes mellitus complication detail: without coma Qualified Code(s): E10.10 - Type 1 diabetes mellitus with ketoacidosis without coma Is this a current diagnosis for this admission?: Yes Plan: Insulin drip. Accu-Cheks every 1 hour. Metabolic panel every 4 hours with replacement of electrolytes as needed. When his potassium drops below 5 we will add potassium to his fluids while he is on the insulin drip. When his blood sugar drops below 250 we will add glucose to his fluids. - Time Time Spent with patient: 35 or more minutes - Inpatient Certification Based on my medical assessment, after consideration of the patient's comorbidities, presenting symptoms, or acuity I expect that the services needed warrant INPATIENT care.: Yes I certify that my determination is in accordance with my understanding of Medicare's requirements for reasonable and necessary INPATIENT services [42 CFR 412.3e].: Yes Medical Necessity: Significant Comorbidiites Make Outpatient Treatment Too Risky, Need Close Monitoring Due to Risk of Patient Decompensation, Need For IV Fluids, Need For Continuous Telemetry Monitoring, Risk of Complication if Not Cared For in Hospital
[2019-08-07 21:10] LABS: BLOOD UREA NITROGEN 19 mg/dL (7-20); CALCIUM 9.8 mg/dL (8.4-10.2)
[2019-08-07 21:15] LABS: CHLORIDE 97 mmol/L (98-107)
[2019-08-07 21:20] LABS: GLUCOSE 403 mg/dL (75-110)
[2019-08-07 21:21] LABS: ANION GAP 27 (5-19); CARBON DIOXIDE 8 mmol/L (22-30); POTASSIUM 6.1 mmol/L (3.6-5.0)
[2019-08-07] MEDS: NORMAL SALINE 100 ML with INSULIN REGULAR, HUMAN 100 UNIT IV PRN ×2 (21:24)
[2019-08-07] MEDS ORDERED: SODIUM BICARBONATE 8.4% INJ 50 MEQ/50 ML DISP.SYRIN ONE ×2 (22:15→22:22)
[2019-08-07] MEDS: HEPARIN SOD (PORCINE) 5,000 UNIT/ML 1 ML VIAL SUBCUT SCH (22:17)
[2019-08-07] MEDS: DEXTROSE 5%-WATER 1000 ML 1,000 ML with SODIUM BICARBONATE 150 MEQ IV PRN ×2 (22:40)
[2019-08-07] MEDS: MORPHINE SULFATE 10 MG/ML INJ IV PRN (22:53)
[2019-08-08] MEDS: NORMAL SALINE 1000 ML 1,000 ML IV PRN ×2 (01:20→05:30)
[2019-08-08] MEDS ORDERED: INSULIN REG, HUMAN 100 UNIT/ML 3 ML VIAL (PYX) ONE (01:52)
[2019-08-08] MEDS ORDERED: SODIUM BICARBONATE 8.4% INJ 50 MEQ/50 ML DISP.SYRIN ONE ×2 (01:55→01:58)
[2019-08-08] MEDS: MORPHINE SULFATE 10 MG/ML INJ IV PRN ×6 (02:01→22:21)
[2019-08-08] MEDS: DEXTROSE 5%-WATER 1000 ML 1,000 ML with SODIUM BICARBONATE 150 MEQ IV PRN ×2 (02:07)
[2019-08-08] MEDS: NORMAL SALINE 100 ML with INSULIN REGULAR, HUMAN 100 UNIT IV PRN ×6 (02:09→16:35)
[2019-08-08 05:07] LABS: HEMATOCRIT 42.1 % (37.9-51.0); MEAN CORPUSCULAR HEMOGLOBIN 26.7 pg (27.0-33.4); MEAN CORPUSCULAR VOLUME 76 fl (80-97); PLATELET COUNT 413 10^3/uL (150-450); RED BLOOD COUNT 5.51 10^6/uL (4.35-5.55); RED CELL DISTRIBUTION WIDTH 15.3 % (11.5-14.0)
[2019-08-08 05:13] LABS: BLOOD UREA NITROGEN 16 mg/dL (7-20); CALCIUM 9.1 mg/dL (8.4-10.2); CHLORIDE 97 mmol/L (98-107); CHOLESTEROL 266.95 mg/dL (0-200); GLUCOSE 338 mg/dL (75-110)
[2019-08-08 05:15] LABS: HEMOGLOBIN 14.7 g/dL (13.5-17.0)
[2019-08-08 05:32] LABS: ANION GAP 15 (5-19)
[2019-08-08 05:39] LABS: CARBON DIOXIDE 22 mmol/L (22-30); POTASSIUM 4.3 mmol/L (3.6-5.0)
[2019-08-08 05:45] LABS: DIRECT LDL < 30 mg/dL (<100); TRIGLYCERIDES 3078 mg/dL (<150)
[2019-08-08] MEDS: HEPARIN SOD (PORCINE) 5,000 UNIT/ML 1 ML VIAL SUBCUT SCH ×3 (06:06→22:21)
[2019-08-08 08:52] LABS: ANION GAP 11 (5-19); BLOOD UREA NITROGEN 14 mg/dL (7-20); CALCIUM 8.8 mg/dL (8.4-10.2); CARBON DIOXIDE 25 mmol/L (22-30); CHLORIDE 99 mmol/L (98-107); GLUCOSE 230 mg/dL (75-110); POTASSIUM 3.7 mmol/L (3.6-5.0)
[2019-08-08] MEDS: POTASSI CL 20 MEQ/D5-1/2NS 1L 1000 ML IV PRN ×4 (09:04→23:26)
[2019-08-08 12:59] LABS: ANION GAP 11 (5-19); BLOOD UREA NITROGEN 12 mg/dL (7-20); CARBON DIOXIDE 27 mmol/L (22-30); CHLORIDE 97 mmol/L (98-107); GLUCOSE 197 mg/dL (75-110); POTASSIUM 3.9 mmol/L (3.6-5.0)
[2019-08-08 13:00] LABS: ALKALINE PHOSPHATASE 99 U/L (38-126); ASPARTATE AMINO TRANSFERASE 21 U/L (17-59); BILIRUBIN,DIRECT 0.1 mg/dL (0.0-0.4); BILIRUBIN,TOTAL 0.7 mg/dL (0.2-1.3); TOTAL PROTEIN 7.4 g/dL (6.3-8.2)
[2019-08-08] MEDS ORDERED: ONDANSETRON HCL INJ/PF 4 MG/2 ML SDV IV PRN (13:00)
[2019-08-08 17:11] LABS: ANION GAP 11 (5-19); BLOOD UREA NITROGEN 11 mg/dL (7-20); CALCIUM 8.9 mg/dL (8.4-10.2); CARBON DIOXIDE 29 mmol/L (22-30); CHLORIDE 96 mmol/L (98-107); GLUCOSE 112 mg/dL (75-110); POTASSIUM 3.7 mmol/L (3.6-5.0)
--- NOTE | 2019-08-08 18:52 | PDOC PROGRESS REPORT ---
Subjective Progress Note for:: 08/08/19 Subjective:: No adverse events overnight. No new complaints. He still having some abdominal pain and nausea but he is not been having any vomiting. His heart rate is still up a little bit but it has improved with fluid. Reason For Visit: DKA, PANCREATITIS Physical Exam Vital Signs: Temp Pulse Resp BP Pulse Ox 99.1 F 100 18 128/89 H 99 08/08/19 16:11 08/08/19 16:11 08/08/19 16:11 08/08/19 16:11 08/08/19 16:11 Intake & Output 08/07/19 08/08/19 08/09/19 06:59 06:59 06:59 Intake Total 5057 3077 Output Total 1440 625 Balance 3617 2452 Weight 115.3 kg General appearance: PRESENT: no acute distress, cooperative, disheveled, morbidly obese Respiratory exam: PRESENT: clear to auscultation kirt, symmetrical, unlabored. ABSENT: accessory muscle use, chest wall tenderness, crackles, prolonged expiratory phas, rhonchi, tachypnea, wheezes Cardiovascular exam: PRESENT: +S1, +S2, tachycardia Pulses: PRESENT: normal carotid pulses Vascular exam: PRESENT: normal capillary refill GI/Abdominal exam: PRESENT: normal bowel sounds, soft, tenderness - Midepigastric. ABSENT: distended, guarding, rebound Extremities exam: ABSENT: clubbing, pedal edema Musculoskeletal exam: PRESENT: normal inspection. ABSENT: deformity Neurological exam: PRESENT: awake, oriented to person, oriented to place, oriented to situation Psychiatric exam: PRESENT: flat affect Skin exam: PRESENT: dry, warm Results Laboratory Results: 08/08/19 04:16 08/08/19 16:24 08/07/19 08/07/19 08/08/19 14:30 20:48 02:50 WBC RBC Hgb Hct MCV MCH MCHC RDW Plt Count Sodium 131.8 L Cancelled Potassium 6.1 H* Cancelled Chloride 97 L Cancelled Carbon Dioxide 8 L* Cancelled Anion Gap 27 H Cancelled BUN 19 Cancelled Creatinine 1.14 Cancelled Est GFR ( Amer) > 60 Cancelled Est GFR (Non-Af Amer) Cancelled Glucose 403 H* Cancelled Calcium 9.8 Cancelled Total Bilirubin AST Alkaline Phosphatase Total Protein Albumin Triglycerides 7093 H Cholesterol LDL Cholesterol Direct HDL Cholesterol Lipase 08/08/19 08/08/19 08/08/19 04:16 04:16 04:16 WBC 18.0 H RBC 5.51 Hgb 14.7 Hct 42.1 MCV 76 L MCH 26.7 L MCHC 35.0 RDW 15.3 H Plt Count 413 Sodium 134.1 L Potassium 4.3 D Chloride 97 L Carbon Dioxide 22 D Anion Gap 15 BUN 16 Creatinine 0.79 Est GFR ( Amer) > 60 Est GFR (Non-Af Amer) Glucose 338 H Calcium 9.1 Total Bilirubin AST Alkaline Phosphatase Total Protein Albumin Triglycerides 3078 H Cholesterol 266.95 H LDL Cholesterol Direct < 30 HDL Cholesterol 30 L Lipase 2079.8 H 08/08/19 08/08/19 08/08/19 08:15 12:00 12:00 WBC RBC Hgb Hct MCV MCH MCHC RDW Plt Count Sodium 135.3 L 134.5 L Potassium 3.7 3.9 Chloride 99 97 L Carbon Dioxide 25 27 Anion Gap 11 11 BUN 14 12 Creatinine 0.68 0.83 Est GFR ( Amer) > 60 > 60 Est GFR (Non-Af Amer) Glucose 230 H 197 H Calcium 8.8 9.0 Total Bilirubin 0.7 AST 21 Alkaline Phosphatase 99 Total Protein 7.4 Albumin 4.0 Triglycerides Cholesterol LDL Cholesterol Direct HDL Cholesterol Lipase 08/08/19 16:24 WBC RBC Hgb Hct MCV MCH MCHC RDW Plt Count Sodium 135.8 L Potassium 3.7 Chloride 96 L Carbon Dioxide 29 Anion Gap 11 BUN 11 Creatinine 0.82 Est GFR ( Amer) > 60 Est GFR (Non-Af Amer) Glucose 112 H Calcium 8.9 Total Bilirubin AST Alkaline Phosphatase Total Protein Albumin Triglycerides Cholesterol LDL Cholesterol Direct HDL Cholesterol Lipase 08/07/19 19:42 Troponin I 0.016 Impressions: Abdomen/Pelvis CT 08/07/19 16:24 IMPRESSION: 1. Acute pancreatitis with trace free fluid at the left upper quadrant. 2. Hepatomegaly. Fatty infiltration of the liver. Assessment and Plan - Diagnosis (1) Acute pancreatitis Qualifiers: Pancreatitis type: other Acute pancreatitis complication: no infection or necrosis Qualified Code(s): K85.80 - Other acute pancreatitis without necrosis or infection Is this a current diagnosis for this admission?: Yes Plan: Suspected to be hyper triglyceride associated. His triglycerides initially were over 7000. He is down to just over 3000 today. His lipase has gone up a little bit. We will going to continue his IV fluids and gut rest and antiemetics. (2) DKA (diabetic ketoacidoses) Qualifiers: Diabetes mellitus type: type 1 Diabetes mellitus complication detail: without coma Qualified Code(s): E10.10 - Type 1 diabetes mellitus with ketoacidosis without coma Is this a current diagnosis for this admission?: Yes Plan: This is actually resolved. His CO2 is greater than 18, anion gap less than 12, and blood sugars less than 200. I am assuming his pH has corrected because his bicarbonate is within the normal range. Because his lipase is still elevated and his triglycerides are still elevated, I am going to keep him on gut rest with IV fluids and the insulin drip. (3) Hypertriglyceridemia Is this a current diagnosis for this admission?: Yes Plan: Continue insulin drip and IV fluids as previously noted. Monitoring his liver panel. - Time Time Spent with patient: 25-34 minutes
[2019-08-08 23:06] LABS: ANION GAP 8 (5-19); BLOOD UREA NITROGEN 9 mg/dL (7-20); CALCIUM 8.7 mg/dL (8.4-10.2); CARBON DIOXIDE 28 mmol/L (22-30); CHLORIDE 97 mmol/L (98-107); GLUCOSE 117 mg/dL (75-110); POTASSIUM 3.6 mmol/L (3.6-5.0)
[2019-08-09] MEDS ORDERED: INSULIN GLARGINE,HUM.REC.ANLOG 1,000 UNIT/10 ML VIAL (PYX) SUBCUT PRN (02:06)
[2019-08-09] MEDS ORDERED: INSULIN GLARGINE,HUM.REC.ANLOG 1,000 UNIT/10 ML VIAL SUBCUT ONE (02:15)
[2019-08-09] MEDS ORDERED: INSULIN GLARGINE,HUM.REC.ANLOG 1,000 UNIT/10 ML VIAL (PYX) SUBCUT ONE (02:28)
[2019-08-09] MEDS ORDERED: DEXTROSE 50%-WATER SYRINGE 25 GM/50 ML DOSE IV PRN (02:30)
[2019-08-09] MEDS ORDERED: GLUCAGON,HUMAN RECOMB 1 MG INJ IM PRN (02:30)
[2019-08-09] MEDS ORDERED: DEXTROSE 40% GEL 15 GM TUBE PO PRN (02:30)
[2019-08-09] MEDS ORDERED: DEXTROSE 50%-WATER SYRINGE 12.5 GM/25 ML DOSE IV PRN (02:30)
[2019-08-09] MEDS ORDERED: DEXTROSE 40% GEL 15 GM TUBE X 2 PO PRN (02:30)
[2019-08-09] MEDS: MORPHINE SULFATE 10 MG/ML INJ IV PRN ×4 (03:13→17:08)
[2019-08-09] MEDS: HEPARIN SOD (PORCINE) 5,000 UNIT/ML 1 ML VIAL SUBCUT SCH ×3 (05:02→21:13)
[2019-08-09] MEDS: POTASSI CL 20 MEQ/D5-1/2NS 1L 1000 ML IV PRN ×4 (05:08→21:12)
[2019-08-09] MEDS: NORMAL SALINE 100 ML with INSULIN REGULAR, HUMAN 100 UNIT IV PRN ×6 (05:30→21:11)
[2019-08-09 07:35] LABS: HEMATOCRIT 35.4 % (37.9-51.0); MEAN CORPUSCULAR HEMOGLOBIN 26.2 pg (27.0-33.4); MEAN CORPUSCULAR VOLUME 79 fl (80-97); PLATELET COUNT 313 10^3/uL (150-450); RED BLOOD COUNT 4.46 10^6/uL (4.35-5.55); RED CELL DISTRIBUTION WIDTH 15.3 % (11.5-14.0); WHITE BLOOD COUNT 13.2 10^3/uL (4.0-10.5)
[2019-08-09 07:48] LABS: ALBUMIN 3.7 g/dL (3.5-5.0); ALKALINE PHOSPHATASE 88 U/L (38-126); ASPARTATE AMINO TRANSFERASE 31 U/L (17-59); BILIRUBIN,DIRECT 0.3 mg/dL (0.0-0.4); BILIRUBIN,TOTAL 0.9 mg/dL (0.2-1.3); HEMOGLOBIN 11.7 g/dL (13.5-17.0); TOTAL PROTEIN 6.6 g/dL (6.3-8.2)
[2019-08-09] MEDS ORDERED: INSULIN LISPRO 100 UNIT/ML 3 ML VIAL SUBCUT SCH (08:00)
--- NOTE | 2019-08-09 18:43 | PDOC PROGRESS REPORT ---
Subjective Progress Note for:: 08/09/19 Subjective:: No adverse events overnight. He said his abdominal pain has improved but he still has some discomfort. He is not really using a whole lot of pain medication. He still has some nausea. Reason For Visit: DKA, PANCREATITIS Physical Exam Vital Signs: Temp Pulse Resp BP Pulse Ox 98.0 F 91 18 130/71 H 100 08/09/19 15:45 08/09/19 15:45 08/09/19 15:45 08/09/19 15:45 08/09/19 15:45 Intake & Output 08/08/19 08/09/19 08/10/19 06:59 06:59 06:59 Intake Total 5057 5178 2320 Output Total 1440 1475 500 Balance 3617 3703 1820 Weight 115.3 kg 119 kg General appearance: PRESENT: no acute distress, cooperative, disheveled, morbidly obese Respiratory exam: PRESENT: clear to auscultation kirt, symmetrical, unlabored. ABSENT: accessory muscle use, chest wall tenderness, crackles, prolonged expiratory phas, rhonchi, tachypnea, wheezes Cardiovascular exam: PRESENT: +S1, +S2, RRR Pulses: PRESENT: normal carotid pulses Vascular exam: PRESENT: normal capillary refill GI/Abdominal exam: PRESENT: normal bowel sounds, soft, tenderness - Midepigastric. ABSENT: distended, guarding, rebound Extremities exam: ABSENT: clubbing, pedal edema Musculoskeletal exam: PRESENT: normal inspection. ABSENT: deformity Neurological exam: PRESENT: awake, oriented to person, oriented to place, oriented to situation Psychiatric exam: PRESENT: flat affect Skin exam: PRESENT: dry, warm Results Laboratory Results: 08/09/19 05:50 08/08/19 21:51 08/08/19 08/09/19 08/09/19 21:51 05:50 05:50 WBC 13.2 H RBC 4.46 Hgb 11.7 L D Hct 35.4 L MCV 79 L MCH 26.2 L MCHC 33.0 RDW 15.3 H Plt Count 313 Sodium 133.3 L Potassium 3.6 Chloride 97 L Carbon Dioxide 28 Anion Gap 8 BUN 9 Creatinine 0.79 Est GFR ( Amer) > 60 Glucose 117 H Calcium 8.7 Total Bilirubin 0.9 AST 31 Alkaline Phosphatase 88 Total Protein 6.6 Albumin 3.7 Triglycerides Lipase 433.6 H 08/09/19 05:50 WBC RBC Hgb Hct MCV MCH MCHC RDW Plt Count Sodium Potassium Chloride Carbon Dioxide Anion Gap BUN Creatinine Est GFR ( Amer) Glucose Calcium Total Bilirubin AST Alkaline Phosphatase Total Protein Albumin Triglycerides 902 H Lipase 08/07/19 19:42 Troponin I 0.016 Impressions: Abdomen/Pelvis CT 08/07/19 16:24 IMPRESSION: 1. Acute pancreatitis with trace free fluid at the left upper quadrant. 2. Hepatomegaly. Fatty infiltration of the liver. Assessment and Plan - Diagnosis (1) Acute pancreatitis Qualifiers: Pancreatitis type: other Acute pancreatitis complication: no infection or necrosis Qualified Code(s): K85.80 - Other acute pancreatitis without necrosis or infection Is this a current diagnosis for this admission?: Yes Plan: His lipase is trending down, was 433 today. I have kept him n.p.o. and on fluids because of his persistent belly pain and nausea. (2) DKA (diabetic ketoacidoses) Qualifiers: Diabetes mellitus type: type 1 Diabetes mellitus complication detail: without coma Qualified Code(s): E10.10 - Type 1 diabetes mellitus with ketoacidosis without coma Is this a current diagnosis for this admission?: Yes Plan: Resolved (3) Hypertriglyceridemia Is this a current diagnosis for this admission?: Yes Plan: Continue insulin drip and IV fluids to facilitate reduction in his triglycerides, down to around 900 today. Monitoring his liver panel. Have not resumed his TriCor and statin at this time. - Time Time Spent with patient: 25-34 minutes
[2019-08-09] MEDS ORDERED: INSULIN GLARGINE,HUM.REC.ANLOG 1,000 UNIT/10 ML VIAL (PYX) SUBCUT SCH (22:00)
[2019-08-09] MEDS ORDERED: INSULIN GLARGINE,HUM.REC.ANLOG 1,000 UNIT/10 ML VIAL SUBCUT SCH (22:00)
[2019-08-10] MEDS: MORPHINE SULFATE 10 MG/ML INJ IV PRN ×5 (03:12→22:11)
[2019-08-10] MEDS: HEPARIN SOD (PORCINE) 5,000 UNIT/ML 1 ML VIAL SUBCUT SCH ×3 (05:06→22:11)
[2019-08-10] MEDS: NORMAL SALINE 1000 ML 1,000 ML IV PRN ×3 (05:49→19:03)
[2019-08-10 08:20] LABS: HEMATOCRIT 33.1 % (37.9-51.0); MEAN CORPUSCULAR HEMOGLOBIN 26.1 pg (27.0-33.4); MEAN CORPUSCULAR HGB CONC 33.3 g/dL (32.0-36.0); MEAN CORPUSCULAR VOLUME 78 fl (80-97); PLATELET COUNT 300 10^3/uL (150-450); RED BLOOD COUNT 4.23 10^6/uL (4.35-5.55); WHITE BLOOD COUNT 9.7 10^3/uL (4.0-10.5)
[2019-08-10 08:45] LABS: ALBUMIN 3.6 g/dL (3.5-5.0); ALKALINE PHOSPHATASE 91 U/L (38-126); ANION GAP 11 (5-19); ASPARTATE AMINO TRANSFERASE 57 U/L (17-59); BILIRUBIN,DIRECT 0.4 mg/dL (0.0-0.4); BILIRUBIN,TOTAL 1.3 mg/dL (0.2-1.3); BLOOD UREA NITROGEN 5 mg/dL (7-20); CALCIUM 9.1 mg/dL (8.4-10.2); CARBON DIOXIDE 22 mmol/L (22-30); CHLORIDE 99 mmol/L (98-107); GLUCOSE 214 mg/dL (75-110); POTASSIUM 4.5 mmol/L (3.6-5.0); TOTAL PROTEIN 6.9 g/dL (6.3-8.2)
[2019-08-10 09:04] LABS: TRIGLYCERIDES 564 mg/dL (<150)
--- NOTE | 2019-08-10 09:50 | PDOC PROGRESS REPORT ---
Subjective Progress Note for:: 08/10/19 Subjective:: The patient is feeling better. Reports less abdominal pain and no nausea. Lipase is below 500. Triglycerides are just over 500. Sugars are still erratic. Reason For Visit: DKA, PANCREATITIS Physical Exam Vital Signs: Temp Pulse Resp BP Pulse Ox 97.4 F 91 22 H 137/75 H 98 08/10/19 08:00 08/10/19 08:00 08/10/19 08:00 08/10/19 08:00 08/10/19 08:00 Intake & Output 08/09/19 08/10/19 08/11/19 06:59 06:59 06:59 Intake Total 5178 3625 Output Total 1475 1150 Balance 3703 2475 Weight 119 kg 120.6 kg General appearance: PRESENT: no acute distress, well-developed, well-nourished Head exam: PRESENT: atraumatic, normocephalic Respiratory exam: PRESENT: clear to auscultation kirt, symmetrical, unlabored. ABSENT: rales, rhonchi, tachypnea, wheezes Cardiovascular exam: PRESENT: RRR, +S1, +S2. ABSENT: diastolic murmur, irregular rhythm, systolic murmur GI/Abdominal exam: PRESENT: normal bowel sounds, soft, other - Protuberant abdomen. ABSENT: tenderness Rectal exam: PRESENT: deferred Gentrourinary exam: ABSENT: indwelling catheter Neurological exam: PRESENT: alert, awake, oriented to person Psychiatric exam: PRESENT: flat affect. ABSENT: agitated, anxious Focused psych exam: ABSENT: delusional, paranoid, restlessness Skin exam: PRESENT: dry, normal color, warm. ABSENT: rash Results Laboratory Results: 08/10/19 07:22 08/10/19 07:22 08/09/19 08/10/19 08/10/19 05:50 07:22 07:22 WBC 9.7 RBC 4.23 L Hgb 11.0 L Hct 33.1 L MCV 78 L MCH 26.1 L MCHC 33.3 RDW 15.0 H Plt Count 300 Sodium 131.8 L Potassium 4.5 Chloride 99 Carbon Dioxide 22 Anion Gap 11 BUN 5 L Creatinine 0.69 Est GFR ( Amer) > 60 Glucose 214 H Calcium 9.1 Total Bilirubin 1.3 AST 57 Alkaline Phosphatase 91 Total Protein 6.9 Albumin 3.6 Triglycerides 902 H 564 H Lipase 436.1 H 08/07/19 19:42 Troponin I 0.016 Impressions: Abdomen/Pelvis CT 08/07/19 16:24 IMPRESSION: 1. Acute pancreatitis with trace free fluid at the left upper q uadrant. 2. Hepatomegaly. Fatty infiltration of the liver. Assessment and Plan - Diagnosis (1) Acute pancreatitis Qualifiers: Pancreatitis type: other Acute pancreatitis complication: no infection or necrosis Qualified Code(s): K85.80 - Other acute pancreatitis without necrosis or infection Is this a current diagnosis for this admission?: Yes Plan: His lipase is trending down, was 433 today. I have kept him n.p.o. and on fluids because of his persistent belly pain and nausea. 08/29/2019 Lipase actually stayed steady at 436. The patient will be advanced to a clear liquid diet and then possibly soft mechanical later today. If he tolerates advance diet then he can go home tomorrow. (2) Hypertriglyceridemia Is this a current diagnosis for this admission?: Yes Plan: Continue insulin drip and IV fluids to facilitate reduction in his triglycerides, down to around 900 today. Monitoring his liver panel. Have not resumed his TriCor and statin at this time. 08/10/2019 Because the triglycerides are now down to 564 the insulin drip was discontinued and the patient was started back on his TriCor and statin therapy. Recheck labs tomorrow. Anticipate the patient will discharge and will need regular follow-up laboratory studies. I also printed educational material for patients from up-to-date. This may provide information that they are not familiar with or possibly fine-tuning their home regimen. (3) DKA (diabetic ketoacidoses) Qualifiers: Diabetes mellitus type: type 1 Diabetes mellitus complication detail: without coma Qualified Code(s): E10.10 - Type 1 diabetes mellitus with ketoacidosis without coma Is this a current diagnosis for this admission?: Yes Plan: Resolved (4) Diabetes mellitus type 1, uncontrolled Qualifiers: Glycemic state: with hyperglycemia Qualified Code(s): E10.65 - Type 1 diabetes mellitus with hyperglycemia Is this a current diagnosis for this admission?: Yes Plan: 08/10/2019 I am resuming the patient's Lantus however I need to split the dose. He received 30 units of Lantus this morning and still glucose readings above 200. And going to change the dosing to 40 units twice daily. The high glucoses were on a clear liquid diet. When he starts taking more food he will likely have higher glucose readings. He may need a much stricter control carbohydrate diet with ultra low fat. (5) Hyponatremia Is this a current diagnosis for this admission?: Yes Plan: 08/10/2019 Sodium has been variable. It is currently approximately 132. His body has gone through significant changes in terms of his triglyceride levels and glucose levels as well as acidosis. I would not be too aggressive in correcting this but rather give it a week or so to see where it settles - Time Time Spent with patient: 25-34 minutes Medications reviewed and adjusted accordingly: Yes Anticipated discharge: Home Within: within 48 hours
[2019-08-10] MEDS ORDERED: INSULIN GLARGINE,HUM.REC.ANLOG 1,000 UNIT/10 ML VIAL SUBCUT SCH (10:00)
[2019-08-10] MEDS: INSULIN LISPRO 100 UNIT/ML 3 ML VIAL SUBCUT SCH ×3 (11:22→22:11)
[2019-08-10] MEDS: INSULIN GLARGINE,HUM.REC.ANLOG 1,000 UNIT/10 ML VIAL SUBCUT SCH (22:10)
[2019-08-10] MEDS: ATORVASTATIN CALCIUM 40 MG TABLET PO SCH (22:10)
[2019-08-11] MEDS: NORMAL SALINE 1000 ML 1,000 ML IV PRN ×4 (01:25→19:30)
[2019-08-11] MEDS: HYDRALAZINE HCL INJ/PF 20 MG/1 ML SDV IV PRN ×2 (03:57→10:31)
[2019-08-11] MEDS: MORPHINE SULFATE 10 MG/ML INJ IV PRN ×3 (03:57→20:53)
[2019-08-11] MEDS: HEPARIN SOD (PORCINE) 5,000 UNIT/ML 1 ML VIAL SUBCUT SCH ×3 (05:37→21:27)
[2019-08-11 08:31] LABS: ALKALINE PHOSPHATASE 101 U/L (38-126); ANION GAP 12 (5-19); ASPARTATE AMINO TRANSFERASE 38 U/L (17-59); BILIRUBIN,DIRECT 0.4 mg/dL (0.0-0.4); BILIRUBIN,TOTAL 1.3 mg/dL (0.2-1.3); BLOOD UREA NITROGEN 6 mg/dL (7-20); CALCIUM 9.6 mg/dL (8.4-10.2); CARBON DIOXIDE 26 mmol/L (22-30); CHLORIDE 96 mmol/L (98-107); GLUCOSE 189 mg/dL (75-110); POTASSIUM 4.2 mmol/L (3.6-5.0); TOTAL PROTEIN 7.6 g/dL (6.3-8.2)
[2019-08-11 08:43] LABS: TRIGLYCERIDES 626 mg/dL (<150)
[2019-08-11] MEDS: INSULIN LISPRO 100 UNIT/ML 3 ML VIAL SUBCUT SCH ×4 (08:48→21:27)
[2019-08-11] MEDS: INSULIN GLARGINE,HUM.REC.ANLOG 1,000 UNIT/10 ML VIAL SUBCUT SCH ×2 (10:30→21:26)
[2019-08-11] MEDS ORDERED: HYDRALAZINE HCL INJ/PF 20 MG/1 ML SDV IV PRN (13:28)
--- NOTE | 2019-08-11 13:42 | PDOC PROGRESS REPORT ---
Subjective Progress Note for:: 08/11/19 Subjective:: 24 year old male with a history of insulin-dependent diabetes mellitus, hyperlipidemia, and an episode of pancreatitis in the past who presents with abdominal pain since this morning. He said his abdomen started hurting and has been a little nauseated. He said he has been taking his insulin and has not missed any doses. He has said that he has had some high readings on his insulin meter. He did not refer to numbers, but rather he referred to the color coding on his sliding scale. He said he had "some greens and some blues" but that he also had "some reds," which apparently is the high end of the scale. His affect was a little strange and perhaps a bit childlike. For example, when I asked him who his physician was, he said he did not know the name of his current doctor, and he kept referring to his previous doctor as "the kiddy doctor." He had a c onstellation of laboratory findings consistent with diabetic ketoacidosis. His lipase was also elevated at greater than 1700. 08/07-No adverse events overnight. No new complaints. He still having some abdominal pain and nausea but he is not been having any vomiting. His heart rate is still up a little bit but it has improved with fluid. 08/08-No adverse events overnight. He said his abdominal pain has improved but he still has some discomfort. He is not really using a whole lot of pain med ication. He still has some nausea. 08/10/19-The patient is feeling better. Reports less abdominal pain and no nausea. Lipase is below 500. Triglycerides are just over 500. Sugars are still erratic. 08/11/2019-patient denies any abdominal pain but amylase lipase went back up again today. To continue to keep him on full liquid diet continue IV fluids 75 cc/h. To recheck lipase levels and triglyceride levels tomorrow. Latest blood sugar is 211. Reason For Visit: DKA, PANCREATITIS Physical Exam Vital Signs: Temp Pulse Resp BP Pulse Ox 97.4 F 95 20 155/110 H 98 08/11/19 07:16 08/11/19 07:16 08/11/19 07:16 08/11/19 08:00 08/11/19 07:16 Intake & Output 08/10/19 08/11/19 08/12/19 06:59 06:59 06:59 Intake Total 3625 3668 1000 Output Total 1150 4025 Balance 2475 -357 1000 Weight 120.6 kg 116.7 kg General appearance: PRESENT: no acute distress, morbidly obese Head exam: PRESENT: atraumatic Eye exam: PRESENT: PERRLA Mouth exam: PRESENT: moist, tongue midline Teeth exam: PRESENT: poor dentation Respiratory exam: PRESENT: clear to auscultation kirt. ABSENT: rales, rhonchi, wheezes Cardiovascular exam: PRESENT: RRR. ABSENT: diastolic murmur, rubs, systolic murmur GI/Abdominal exam: PRESENT: normal bowel sounds, soft. ABSENT: distended, guarding, mass, organolmegaly, rebound, tenderness Rectal exam: PRESENT: deferred Extremities exam: PRESENT: full ROM. ABSENT: calf tenderness, clubbing, pedal edema Neurological exam: PRESENT: alert, awake, oriented to person, oriented to place, oriented to time, oriented to situation, CN II-XII grossly intact. ABSENT: motor sensory deficit Psychiatric exam: PRESENT: appropriate affect, normal mood. ABSENT: homicidal ideation, suicidal ideation Results Laboratory Results: 08/10/19 07:22 08/11/19 06:20 08/11/19 06:20 Sodium 134.0 L Potassium 4.2 Chloride 96 L Carbon Dioxide 26 Anion Gap 12 BUN 6 L Creatinine 0.64 Est GFR ( Amer) > 60 Glucose 189 H Calcium 9.6 Total Bilirubin 1.3 AST 38 Alkaline Phosphatase 101 Total Protein 7.6 Albumin 4.0 Triglycerides 626 H Lipase 585.2 H 08/07/19 19:42 Troponin I 0.016 Impressions: Abdomen/Pelvis CT 08/07/19 16:24 IMPRESSION: 1. Acute pancreatitis with trace free fluid at the left upper quadrant. 2. Hepatomegaly. Fatty infiltration of the liver. Assessment and Plan - Diagnosis (1) Acute pancreatitis Qualifiers: Pancreatitis type: other Acute pancreatitis complication: no infection or necrosis Qualified Code(s): K85.80 - Other acute pancreatitis without necrosis or infection Is this a current diagnosis for this admission?: Yes Plan: His lipase is trending down, was 433 today. I have kept him n.p.o. and on fluids because of his persistent belly pain and nausea. 08/10/2019 Lipase actually stayed steady at 436. The patient will be advanced to a clear liquid diet and then possibly soft mechanical later today. If he tolerates advance diet then he can go home tomorrow. 08/11/2019-lipase level went up to 535 today. Presently full liquid diet and IV fluids. Plan is to continue IV fluids 75 cc/h. To repeat the labs tomorrow. (2) Hypertriglyceridemia Is this a current diagnosis for this admission?: Yes Plan: Continue insulin drip and IV fluids to facilitate reduction in his triglycerides, down to around 900 today. Monitoring his liver panel. Have not resumed his TriCor and statin at this time. 08/10/2019 Because the triglycerides are now down to 564 the insulin drip was discontinued and the patient was started back on his TriCor and statin therapy. Recheck labs tomorrow. Anticipate the patient will discharge and will need regular follow-up laboratory studies. I also printed educational material for patients from up-to-date. This may provide information that they are not familiar with or pos sibly fine-tuning their home regimen. 08/11/2019-lipase level today 626. Went back up. Presently on statins and TriCor. Plan is to repeat the labs tomorrow. (3) DKA (diabetic ketoacidoses) Qualifiers: Diabetes mellitus type: type 1 Diabetes mellitus complication detail: without coma Qualified Code(s): E10.10 - Type 1 diabetes mellitus with ketoacidosis without coma Is this a current diagnosis for this admission?: Yes Plan: Resolved (4) Diabetes mellitus type 1, uncontrolled Qualifiers: Glycemic state: with hyperglycemia Qualified Code(s): E10.65 - Type 1 diabetes mellitus with hyperglycemia Is this a current diagnosis for this admission?: Yes Plan: 08/10/2019 I am resuming the patient's Lantus however I need to split the dose. He received 30 units of Lantus this morning and still glucose readings above 200. And going to change the dosing to 40 units twice daily. The high glucoses were on a clear liquid diet. When he starts taking more food he will likely have higher glucose readings. He may need a much stricter control carbohydrate diet with ultra low fat. (5) Hyponatremia Is this a current diagnosis for this admission?: Yes Plan: 08/10/2019 Sodium has been variable. It is currently approximately 132. His body has gone through significant changes in terms of his triglyceride levels and glucose levels as well as acidosis. I would not be too aggressive in correcting this but rather give it a week or so to see where it settles 08/11/2019-serum sodium today is 34. Stable. Blood sugar is around 211. Plan is to closely monitor the labs on regular basis.
[2019-08-11] MEDS: ATORVASTATIN CALCIUM 40 MG TABLET PO SCH (21:27)
[2019-08-12 04:51] LABS: ANION GAP 13 (5-19); BLOOD UREA NITROGEN 7 mg/dL (7-20); CARBON DIOXIDE 25 mmol/L (22-30); CHLORIDE 97 mmol/L (98-107); GLUCOSE 181 mg/dL (75-110); POTASSIUM 3.8 mmol/L (3.6-5.0)
[2019-08-12 05:02] LABS: TRIGLYCERIDES 594 mg/dL (<150)
[2019-08-12] MEDS: MORPHINE SULFATE 10 MG/ML INJ IV PRN ×2 (05:07→09:13)
[2019-08-12] MEDS: HEPARIN SOD (PORCINE) 5,000 UNIT/ML 1 ML VIAL SUBCUT SCH ×3 (05:07→21:51)
[2019-08-12] MEDS: NORMAL SALINE 1000 ML 1,000 ML IV PRN (08:25)
[2019-08-12] MEDS: INSULIN LISPRO 100 UNIT/ML 3 ML VIAL SUBCUT SCH ×4 (08:25→21:50)
[2019-08-12] MEDS: INSULIN GLARGINE,HUM.REC.ANLOG 1,000 UNIT/10 ML VIAL SUBCUT SCH ×2 (09:13→21:51)
--- NOTE | 2019-08-12 11:57 | PDOC PROGRESS REPORT ---
Subjective Progress Note for:: 08/12/19 Subjective:: 24 year old male with a history of insulin-dependent diabetes mellitus, hyperlipidemia, and an episode of pancreatitis in the past who presents with abdominal pain since this morning. He said his abdomen started hurting and has been a little nauseated. He said he has been taking his insulin and has not missed any doses. He has said that he has had some high readings on his insulin meter. He did not refer to numbers, but rather he referred to the color coding on his sliding scale. He said he had "some greens and some blues" but that he also had "some reds," which apparently is the high end of the scale. His affect was a little strange and perhaps a bit childlike. For example, when I asked him who his physician was, he said he did not know the name of his current doctor, and he kept referring to his previous doctor as "the kiddy doctor." He had a c onstellation of laboratory findings consistent with diabetic ketoacidosis. His lipase was also elevated at greater than 1700. 08/07-No adverse events overnight. No new complaints. He still having some abdominal pain and nausea but he is not been having any vomiting. His heart rate is still up a little bit but it has improved with fluid. 08/08-No adverse events overnight. He said his abdominal pain has improved but he still has some discomfort. He is not really using a whole lot of pain med ication. He still has some nausea. 08/10/19-The patient is feeling better. Reports less abdominal pain and no nausea. Lipase is below 500. Triglycerides are just over 500. Sugars are still erratic. 08/11/2019-patient denies any abdominal pain but amylase lipase went back up again today. To continue to keep him on full liquid diet continue IV fluids 75 cc/h. To recheck lipase levels and triglyceride levels tomorrow. Latest blood sugar is 211. 08/12/2019-patient is comfortable in the chair not in distress. Triglycerides and lipase slightly improved. Triglycerides today 594, lipase is 384. On IV fluids 75 cc/h, and on full liquid diet. plan is to recheck the labs tomorrow. Reason For Visit: DKA, PANCREATITIS Physical Exam Vital Signs: Temp Pulse Resp BP Pulse Ox 97.4 F 70 16 141/92 H 97 08/12/19 07:24 08/12/19 07:24 08/12/19 07:24 08/12/19 07:24 08/12/19 07:24 Intake & Output 08/11/19 08/12/19 08/13/19 06:59 06:59 06:59 Intake Total 3668 2411 969 Output Total 4029 3030 Balance -357 -1389 969 Weight 116.7 kg General appearance: PRESENT: no acute distress, obese Head exam: PRESENT: atraumatic Eye exam: PRESENT: PERRLA Mouth exam: PRESENT: moist, tongue midline Teeth exam: PRESENT: poor dentation Neck exam: ABSENT: carotid bruit, JVD, lymphadenopathy, thyromegaly Respiratory exam: PRESENT: decreased breath sounds Cardiovascular exam: PRESENT: RRR. ABSENT: diastolic murmur, rubs, systolic murmur Pulses: PRESENT: normal dorsalis pedis pul GI/Abdominal exam: PRESENT: normal bowel sounds, soft. ABSENT: distended, guarding, mass, organolmegaly, rebound, tenderness Rectal exam: PRESENT: deferred Extremities exam: PRESENT: full ROM. ABSENT: calf tenderness, clubbing, pedal edema Neurological exam: PRESENT: alert, awake, oriented to person, oriented to place, oriented to time, oriented to situation, CN II-XII grossly intact. ABSENT: motor sensory deficit Psychiatric exam: PRESENT: appropriate affect, normal mood. ABSENT: homicidal ideation, suicidal ideation Skin exam: PRESENT: dry, intact, warm. ABSENT: cyanosis, rash Results Laboratory Results: 08/10/19 07:22 08/12/19 03:56 08/12/19 03:56 Sodium 134.9 L Potassium 3.8 Chloride 97 L Carbon Dioxide 25 Anion Gap 13 BUN 7 Creatinine 0.63 Est GFR ( Amer) > 60 Glucose 181 H Calcium 10.0 Triglycerides 594 H Lipase 384.6 H 08/07/19 19:42 Troponin I 0.016 Impressions: Abdomen/Pelvis CT 08/07/19 16:24 IMPRESSION: 1. Acute pancreatitis with trace free fluid at the left upper quadrant. 2. Hepatomegaly. Fatty infiltration of the liver. Assessment and Plan - Diagnosis (1) Acute pancreatitis Qualifiers: Pancreatitis type: other Acute pancreatitis complication: no infection or necrosis Qualified Code(s): K85.80 - Other acute pancreatitis without necrosis or infection Is this a current diagnosis for this admission?: Yes Plan: His lipase is trending down, was 433 today. I have kept him n.p.o. and on fluids because of his persistent belly pain and nausea. 08/10/2019 Lipase actually stayed steady at 436. The patient will be advanced to a clear liquid diet and then possibly soft mechanical later today. If he tolerates advance diet then he can go home tomorrow. 08/11/2019-lipase level went up to 535 today. Presently full liquid diet and IV fluids. Plan is to continue IV fluids 75 cc/h. To repeat the labs tomorrow. 08/12/2019-patient is on IV fluids at 75 cc/h and on full liquid diet. plan is to continue the present management and to recheck lipase tomorrow. (2) Hypertriglyceridemia Is this a current diagnosis for this admission?: Yes Plan: Continue insulin drip and IV fluids to facilitate reduction in his triglycerides, down to around 900 today. Monitoring his liver panel. Have not resumed his TriCor and statin at this time. 08/10/2019 Because the triglycerides are now down to 564 the insulin drip was discontinued and the patient was started back on his TriCor and statin therapy. Recheck labs tomorrow. Anticipate the patient will discharge and will need regular follow-up laboratory studies. I also printed educational material for patients from up -to-date. This may provide information that they are not familiar with or possibly fine-tuning their home regimen. 08/11/2019-lipase level today 626. Went back up. Presently on statins and TriCor. Plan is to repeat the labs tomorrow. 08/12/2019-triglyceride is 594 improved compared to yesterday. Not on insulin drip. Presently on statins and TriCor. Plan is to recheck the labs tomorrow. (3) DKA (diabetic ketoacidoses) Qualifiers: Diabetes mellitus type: type 1 Diabetes mellitus complication detail: without coma Qualified Code(s): E10.10 - Type 1 diabetes mellitus with ketoacidosis without coma Is this a current diagnosis for this admission?: Yes Plan: Resolved (4) Diabetes mellitus type 1, uncontrolled Qualifiers: Glycemic state: with hyperglycemia Qualified Code(s): E10.65 - Type 1 diabetes mellitus with hyperglycemia Is this a current diagnosis for this admission?: Yes Plan: 08/10/2019 I am resuming the patient's Lantus however I need to split the dose. He received 30 units of Lantus this morning and still glucose readings above 200. And going to change the dosing to 40 units twice daily. The high glucoses were on a clear liquid diet. When he starts taking more food he will likely have higher glucose readings. He may need a much stricter control carbohydrate diet with ultra low fat. 08/12/2019-blood sugar this morning is 177. Presently on insulin sliding scale and Lantus 40 units twice a day. He is on full liquid diet. (5) Hyponatremia Is this a current diagnosis for this admission?: Yes Plan: 08/10/2019 Sodium has been variable. It is currently approximately 132. His body has gone through significant changes in terms of his triglyceride levels and glucose levels as well as acidosis. I would not be too aggressive in correcting this but rather give it a week or so to see where it settles 08/11/2019-serum sodium today is 34. Stable. Blood sugar is around 211. Plan is to closely monitor the labs on regular basis. 08/12/2019-serum sodium is 135, hyponatremia resolved.
[2019-08-12] MEDS: ATORVASTATIN CALCIUM 40 MG TABLET PO SCH (21:51)
[2019-08-13] MEDS: HEPARIN SOD (PORCINE) 5,000 UNIT/ML 1 ML VIAL SUBCUT SCH ×3 (05:20→21:46)
[2019-08-13] MEDS: NORMAL SALINE 1000 ML 1,000 ML IV PRN (05:20)
[2019-08-13 06:19] LABS: HEMATOCRIT 33.6 % (37.9-51.0); HEMOGLOBIN 11.5 g/dL (13.5-17.0); MEAN CORPUSCULAR HEMOGLOBIN 26.1 pg (27.0-33.4); MEAN CORPUSCULAR HGB CONC 34.3 g/dL (32.0-36.0); MEAN CORPUSCULAR VOLUME 76 fl (80-97); PLATELET COUNT 476 10^3/uL (150-450); RED BLOOD COUNT 4.42 10^6/uL (4.35-5.55); RED CELL DISTRIBUTION WIDTH 14.8 % (11.5-14.0); WHITE BLOOD COUNT 10.3 10^3/uL (4.0-10.5)
[2019-08-13 06:49] LABS: ABSOLUTE MONOCYTES # (MANUAL) 0.5 10^3/uL (0.1-1.4); ANISOCYTOSIS 1+; BAND NEUTROPHILS % (MANUAL) 3 % (3-5); BASOPHILS % (MANUAL) 0 % (0-2); EOSINOPHILS % (MANUAL) 0 % (0-6); HYPOCHROMASIA 1+; LYMPHOCYTES % (MANUAL) 29 % (13-45); MONOCYTES % (MANUAL) 5 % (3-13); PLATELET COMMENT ADEQUATE; POLYCHROMASIA 1+; SEGMENTED NEUTROPHILS % (MAN) 63 % (42-78); TOTAL CELLS COUNTED 100
[2019-08-13 07:01] LABS: ALKALINE PHOSPHATASE 102 U/L (38-126); ANION GAP 12 (5-19); ASPARTATE AMINO TRANSFERASE 49 U/L (17-59); BILIRUBIN,DIRECT 0.2 mg/dL (0.0-0.4); BILIRUBIN,TOTAL 1.1 mg/dL (0.2-1.3); BLOOD UREA NITROGEN 8 mg/dL (7-20); CARBON DIOXIDE 23 mmol/L (22-30); CHLORIDE 99 mmol/L (98-107); GLUCOSE 151 mg/dL (75-110); POTASSIUM 4.1 mmol/L (3.6-5.0); TOTAL PROTEIN 7.7 g/dL (6.3-8.2); TRIGLYCERIDES 502 mg/dL (<150)
[2019-08-13] MEDS: INSULIN LISPRO 100 UNIT/ML 3 ML VIAL SUBCUT SCH ×4 (08:05→21:44)
[2019-08-13] MEDS: INSULIN GLARGINE,HUM.REC.ANLOG 1,000 UNIT/10 ML VIAL SUBCUT SCH ×2 (09:09→21:45)
[2019-08-13] MEDS: FENOFIBRATE NANOCRYSTALLIZED 145 MG TABLET PO SCH (09:09)
--- NOTE | 2019-08-13 10:24 | PDOC PROGRESS REPORT ---
Subjective Progress Note for:: 08/13/19 Subjective:: 24 year old male with a history of insulin-dependent diabetes mellitus, hyperlipidemia, and an episode of pancreatitis in the past who presents with abdominal pain since this morning. He said his abdomen started hurting and has been a little nauseated. He said he has been taking his insulin and has not missed any doses. He has said that he has had some high readings on his insulin meter. He did not refer to numbers, but rather he referred to the color coding on his sliding scale. He said he had "some greens and some blues" but that he also had "some reds," which apparently is the high end of the scale. His affect was a little strange and perhaps a bit childlike. For example, when I asked him who his physician was, he said he did not know the name of his current doctor, and he kept referring to his previous doctor as "the kiddy doctor." He had a c onstellation of laboratory findings consistent with diabetic ketoacidosis. His lipase was also elevated at greater than 1700. 08/07-No adverse events overnight. No new complaints. He still having some abdominal pain and nausea but he is not been having any vomiting. His heart rate is still up a little bit but it has improved with fluid. 08/08-No adverse events overnight. He said his abdominal pain has improved but he still has some discomfort. He is not really using a whole lot of pain med ication. He still has some nausea. 08/10/19-The patient is feeling better. Reports less abdominal pain and no nausea. Lipase is below 500. Triglycerides are just over 500. Sugars are still erratic. 08/11/2019-patient denies any abdominal pain but amylase lipase went back up again today. To continue to keep him on full liquid diet continue IV fluids 75 cc/h. To recheck lipase levels and triglyceride levels tomorrow. Latest blood sugar is 211. 08/12/2019-patient is comfortable in the chair not in distress. Triglycerides and lipase slightly improved. Triglycerides today 594, lipase is 384. On IV fluids 75 cc/h, and on full liquid diet. plan is to recheck the labs tomorrow. 08/13/2019-no acute events in the last 24 hours. Afebrile. Triglycerides came down to 542, lipase improved to 370. Started on diabetic diet and to stop IV fluids. Reason For Visit: DKA, PANCREATITIS Physical Exam Vital Signs: Temp Pulse Resp BP Pulse Ox 97.7 F 67 16 153/88 H 100 08/13/19 07:46 08/13/19 07:46 08/13/19 07:46 08/13/19 07:46 08/13/19 07:46 Intake & Output 08/12/19 08/13/19 08/14/19 06:59 06:59 06:59 Intake Total 2411 5139 Output Total 3800 3275 Balance -1389 1864 Weight 115.8 kg General appearance: PRESENT: no acute distress, obese Head exam: PRESENT: atraumatic Eye exam: PRESENT: PERRLA Mouth exam: PRESENT: moist, tongue midline Neck exam: ABSENT: carotid bruit, JVD, lymphadenopathy, thyromegaly Respiratory exam: PRESENT: clear to auscultation kirt. ABSENT: rales, rhonchi, wheezes Cardiovascular exam: PRESENT: RRR. ABSENT: diastolic murmur, rubs, systolic murmur GI/Abdominal exam: PRESENT: normal bowel sounds, soft. ABSENT: distended, gua rding, mass, organolmegaly, rebound, tenderness Rectal exam: PRESENT: deferred Extremities exam: PRESENT: full ROM. ABSENT: calf tenderness, clubbing, pedal edema Neurological exam: PRESENT: alert, awake, oriented to person, oriented to place, oriented to time, oriented to situation, CN II-XII grossly intact. ABSENT: davina r sensory deficit Psychiatric exam: PRESENT: agitated Skin exam: PRESENT: dry, intact, warm. ABSENT: cyanosis, rash Results Laboratory Results: 08/13/19 05:38 08/13/19 05:38 08/13/19 08/13/19 05:38 05:38 WBC 10.3 RBC 4.42 Hgb 11.5 L Hct 33.6 L MCV 76 L MCH 26.1 L MCHC 34.3 RDW 14.8 H Plt Count 476 H Seg Neutrophils % Not Reportable Sodium 133.7 L Potassium 4.1 Chloride 99 Carbon Dioxide 23 Anion Gap 12 BUN 8 Creatinine 0.63 Est GFR ( Amer) > 60 Glucose 151 H Calcium 10.0 Magnesium 1.5 L Total Bilirubin 1.1 AST 49 Alkaline Phosphatase 102 Total Protein 7.7 Albumin 4.0 Triglycerides 502 H Lipase 370.7 H 08/07/19 19:42 Troponin I 0.016 Impressions: Abdomen/Pelvis CT 08/07/19 16:24 IMPRESSION: 1. Acute pancreatitis with trace free fluid at the left upper quadrant. 2. Hepatomegaly. Fatty infiltration of the liver. Assessment and Plan - Diagnosis (1) Acute pancreatitis Qualifiers: Pancreatitis type: other Acute pancreatitis complication: no infection or necrosis Qualified Code(s): K85.80 - Other acute pancreatitis without necrosis or infection Is this a current diagnosis for this admission?: Yes Plan: His lipase is trending down, was 433 today. I have kept him n.p.o. and on fluids because of his persistent belly pain and nausea. 08/10/2019 Lipase actually stayed steady at 436. The patient will be advanced to a clear liquid diet and then possibly soft mechanical later today. If he tolerates advance diet then he can go home tomorrow. 08/11/2019-lipase level went up to 535 today. Presently full liquid diet and IV fluids. Plan is to continue IV fluids 75 cc/h. To repeat the labs tomorrow. 08/12/2019-patient is on IV fluids at 75 cc/h and on full liquid diet. plan is to continue the present management and to recheck lipase tomorrow. 08/13/2019-patient admitted with acute pancreatitis most likely secondary to hypertriglyceridemia. Lipase level is 370 today. Started on diabetic diet and to recheck the lipase levels tomorrow. (2) Hypertriglyceridemia Is this a current diagnosis for this admission?: Yes Plan: Continue insulin drip and IV fluids to facilitate reduction in his triglycerides, down to around 900 today. Monitoring his liver panel. Have not resumed his TriCor and statin at this time. 08/10/2019 Because the triglycerides are now down to 564 the insulin drip was discontinued and the patient was started back on his TriCor and statin therapy. Recheck labs tomorrow. Anticipate the patient will discharge and will need regular follow-up laboratory studies. I also printed educational material for patients from up-to-date. This may provide information that they are not familiar with or possibly fine-tuning their home regimen. 08/11/2019-lipase level today 626. Went back up. Presently on statins and TriCor. Plan is to repeat the labs tomorrow. 08/12/2019-triglyceride is 594 improved compared to yesterday. Not on insulin drip. Presently on statins and TriCor. Plan is to recheck the labs tomorrow. 08/12-triglycerides 502 today improved. Plan to increase the dose of atorvastatin to 80 mg daily and started on TriCor. To recheck the labs tomorrow. (3) DKA (diabetic ketoacidoses) Qualifiers: Diabetes mellitus type: type 1 Diabetes mellitus complication detail: without coma Qualified Code(s): E10.10 - Type 1 diabetes mellitus with ketoacidosis without coma Is this a current diagnosis for this admission?: Yes Plan: Resolved (4) Diabetes mellitus type 1, uncontrolled Qualifiers: Glycemic state: with hyperglycemia Qualified Code(s): E10.65 - Type 1 diabetes mellitus with hyperglycemia Is this a current diagnosis for this admission?: Yes Plan: 08/10/2019 I am resuming the patient's Lantus however I need to split the dose. He received 30 units of Lantus this morning and still glucose readings above 200. And going to change the dosing to 40 units twice daily. The high glucoses were on a clear liquid diet. When he starts taking more food he will likely have higher glucose readings. He may need a much stricter control carbohydrate diet with ultra low fat. 08/12/2019-blood sugar this morning is 177. Presently on insulin sliding scale and Lantus 40 units twice a day. He is on full liquid diet. 08/13/2019-latest blood sugar is 150. Present on Lantus 14 is twice a day and started on diabetic diet. To continue insulin sliding scale before meals and at bedtime. (5) Hyponatremia Is this a current diagnosis for this admission?: Yes Plan: 08/10/2019 Sodium has been variable. It is currently approximately 132. His body has gone through significant changes in terms of his triglyceride levels and glucose levels as well as acidosis. I would not be too aggressive in correcting this but rather give it a week or so to see where it settles 08/11/2019-serum sodium today is 34. Stable. Blood sugar is around 211. Plan is to closely monitor the labs on regular basis. 08/12/2019-serum sodium is 135, hyponatremia resolved. 08/13/2019-serum sodium is 133.7 hyponatremia is resolved.
[2019-08-13] MEDS ORDERED: ATORVASTATIN CALCIUM 40 MG TABLET PO SCH (22:00)
[2019-08-14] MEDS: HEPARIN SOD (PORCINE) 5,000 UNIT/ML 1 ML VIAL SUBCUT SCH (05:34)
[2019-08-14 07:46] VITALS: BP 136/76
[2019-08-14] MEDS: INSULIN LISPRO 100 UNIT/ML 3 ML VIAL SUBCUT SCH (08:48)
[2019-08-14] MEDS: FENOFIBRATE NANOCRYSTALLIZED 145 MG TABLET PO SCH (09:04)
[2019-08-14] MEDS: INSULIN GLARGINE,HUM.REC.ANLOG 1,000 UNIT/10 ML VIAL SUBCUT SCH (09:04)
--- NOTE | 2019-08-14 10:22 | PDOC DISCHARGE SUMMARY ---
Impression - Admit/DC Date/PCP Admission Date/Primary Care Provider: 08/07/19 18:21 RONDA LOCKE MD Discharge Date: 08/14/19 - Discharge Diagnosis (1) Acute pancreatitis Is this a current diagnosis for this admission?: Yes (2) Hypertriglyceridemia Is this a current diagnosis for this admission?: Yes (3) DKA (diabetic ketoacidoses) Is this a current diagnosis for this admission?: Yes (4) Diabetes mellitus type 1, uncontrolled Is this a current diagnosis for this admission?: Yes (5) Hyponatremia Is this a current diagnosis for this admission?: Yes - Assessment Summary: (1) Acute pancreatitis Qualifiers: Pancreatitis type: other Acute pancreatitis complication: no infection or necrosis Qualified Code(s): K85.80 - Other acute pancreatitis without necrosis or infection Is this a current diagnosis for this admission?: Yes Plan: His lipase is trending down, was 433 today. I have kept him n.p.o. and on fluids because of his persistent belly pain and nausea. 08/10/2019 Lipase actually stayed steady at 436. The patient will be advanced to a clear liquid diet and then possibly soft mechanical later today. If he tolerates advance diet then he can go home tomorrow. 08/11/2019-lipase level went up to 535 today. Presently full liquid diet and IV fluids. Plan is to continue IV fluids 75 cc/h. To repeat the labs tomorrow. 08/12/2019-patient is on IV fluids at 75 cc/h and on full liquid diet. plan is to continue the present management and to recheck lipase tomorrow. 08/13/2019-patient admitted with acute pancreatitis most likely secondary to hypertriglyceridemia. Lipase level is 370 today. Started on diabetic diet and to recheck the lipase levels tomorrow. 08/14/2019-patient admitted with acute pancreatitis most likely secondary to high triglyceride levels. Patient was initially in insulin pump to bring the triglycerides down. Presently he is on a diabetic diet and on atorvastatin, TriCor. Latest triglyceride levels are 458. Improving. In my opinion patient can go home today and follow-up with primary care physician. Diet exercise weight loss lifestyle modifications discussed with the patient. Patient denies any abdominal pains latest lipase level is 353. (2) Hypertriglyceridemia Is this a current diagnosis for this admission?: Yes Plan: Continue insulin drip and IV fluids to facilitate reduction in his triglycerides, down to around 900 today. Monitoring his liver panel. Have not resumed his TriCor and statin at this time. 08/10/2019 Because the triglycerides are now down to 564 the insulin drip was discontinued and the patient was started back on his TriCor and statin therapy. Recheck labs tomorrow. Anticipate the patient will discharge and will need regular follow-up laboratory studies. I also printed educational material for patients from up-to-date. This may provide information that they are not familiar with or possibly fine-tuning their home regimen. 08/11/2019-lipase level today 626. Went back up. Presently on statins and TriCor. Plan is to repeat the labs tomorrow. 08/12/2019-triglyceride is 594 improved compared to yesterday. Not on insulin drip. Presently on statins and TriCor. Plan is to recheck the labs tomorrow. 08/12-triglycerides 502 today improved. Plan to increase the dose of atorvastatin to 80 mg daily and started on TriCor. To recheck the labs tomorrow. 08/14/2019-triglycerides 458 today improving. Since yesterday he is on diabetic diet. He is receiving atorvastatin, TriCor at this time. Prescriptions were given. Again diet exercise weight loss lifestyle modifications and compliance with the diabetic medications discussed with the patient. (3) DKA (diabetic ketoacidoses) Qualifiers: Diabetes mellitus type: type 1 Diabetes mellitus complication detail: without coma Qualified Code(s): E10.10 - Type 1 diabetes mellitus with ketoacidosis without coma Is this a current diagnosis for this admission?: Yes Plan: Resolved (4) Diabetes mellitus type 1, uncontrolled Qualifiers: Glycemic state: with hyperglycemia Qualified Code(s): E10.65 - Type 1 diabetes mellitus with hyperglycemia Is this a current diagnosis for this admission?: Yes Plan: 08/10/2019 I am resuming the patient's Lantus however I need to split the dose. He received 30 units of Lantus this morning and still glucose readings above 200. And going to change the dosing to 40 units twice daily. The high glucoses were on a clear liquid diet. When he starts taking more food he will likely have higher glucose readings. He may need a much stricter control carbohydrate diet with ultra low fat. 08/12/2019-blood sugar this morning is 177. Presently on insulin sliding scale and Lantus 40 units twice a day. He is on full liquid diet. 08/13/2019-latest blood sugar is 150. Present on Lantus 14 is twice a day and started on diabetic diet. To continue insulin sliding scale before meals and at bedtime. 08/14/2019-latest blood glucose is 247 prescription for Lantus 40 units twice a day given. Patient is advised to use the sliding scale before meals and at bedtime on daily basis. Again weight loss is advised. Compliance with medications advised. (5) Hyponatremia Is this a current diagnosis for this admission?: Yes Plan: 08/10/2019 Sodium has been variable. It is currently approximately 132. His body has gone through significant changes in terms of his triglyceride levels and glucose levels as well as acidosis. I would not be too aggressive in correcting this but rather give it a week or so to see where it settles 08/11/2019-serum sodium today is 34. Stable. Blood sugar is around 211. Plan is to closely monitor the labs on regular basis. 08/12/2019-serum sodium is 135, hyponatremia resolved. 08/13/2019-serum sodium is 133.7 hyponatremia is resolved. - Additional Information Discharge Diet: Diabetic Discharge Activity: Activity As Tolerated Referrals: RONDA LOCKE MD [Primary Care Provider] - Follow up as needed Prescriptions: Insulin Glargine,Hum.rec.anlog [Lantus Insulin 100 Unit/1 ml 10 ml] 40 unit SUBCUT Q12 30 Days #4 vial Atorvastatin Calcium [Lipitor 40 mg Tablet] 80 mg PO QHS 30 Days #30 tablet Fenofibrate Nanocrystallized [Tricor 145 mg Tablet] 145 mg PO DAILY 30 Days #30 tablet Home Medications: Amlodipine Besylate [Norvasc 5 mg Tablet] 5 mg PO DAILY 08/08/19 Insulin Aspart [Novolog] See Protocol SQ MEALS 08/08/19 Atorvastatin Calcium [Lipitor 40 mg Tablet] 80 mg PO QHS 30 Days #30 tablet 08/14/19 Fenofibrate Nanocrystallized [Tricor 145 mg Tablet] 145 mg PO DAILY 30 Days #30 tablet 08/14/19 Insulin Glargine,Hum.rec.anlog [Lantus Insulin 100 Unit/1 ml 10 ml] 40 unit SUBCUT Q12 30 Days #4 vial 08/14/19 History of Present Illiness History of Present Illness: SUNITA SOLIS JR is a 24 year old male 24 year old male with a history of insulin-dependent diabetes mellitus, hyperlipidemia, and an episode of pancreatitis in the past who presents with abdominal pain since this morning. He said his abdomen started hurting and has been a little nauseated. He said he has been taking his insulin and has not missed any doses. He has said that he has had some high readings on his insulin meter. He did not refer to numbers, but rather he referred to the color coding on his sliding scale. He said he had "some greens and some blues" but that he also had "some reds," which apparently is the high end of the scale. His affect was a little strange and perhaps a bit childlike. For example, when I asked him who his physician was, he said he did not know the name of his current doctor, and he kept referring to his previous doctor as "the kiddy doctor." He had a constellation of laboratory findings consistent with diabetic ketoacidosis. His lipase was also elevated at greater than 1700. Hospital Course Hospital Course: 24 year old male with a history of insulin-dependent diabetes mellitus, hyperlipidemia, and an episode of pancreatitis in the past who presents with abdominal pain since this morning. He said his abdomen started hurting and has been a little nauseated. He said he has been taking his insulin and has not missed any doses. He has said that he has had some high readings on his insulin meter. He did not refer to numbers, but rather he referred to the color coding on his sliding scale. He said he had "some greens and some blues" but that he also had "some reds," which apparently is the high end of the scale. His affect was a little strange and perhaps a bit childlike. For example, when I asked him who his physician was, he said he did not know the name of his current doctor, and he kept referring to his previous doctor as "the kiddy doctor." He had a constellation of laboratory findings consistent with diabetic ketoacidosis. His lipase was also elevated at greater than 1700. 08/07-No adverse events overnight. No new complaints. He still having some abdominal pain and nausea but he is not been having any vomiting. His heart rate is still up a little bit but it has improved with fluid. 08/08-No adverse events overnight. He said his abdominal pain has improved but he still has some discomfort. He is not really using a whole lot of pain medication. He still has some nausea. 08/10/19-The patient is feeling better. Reports less abdominal pain and no nausea. Lipase is below 500. Triglycerides are just over 500. Sugars are still erratic. 08/11/2019-patient denies any abdominal pain but amylase lipase went back up again today. To continue to keep him on full liquid diet continue IV fluids 75 cc/h. To recheck lipase levels and triglyceride levels tomorrow. Latest blood sugar is 211. 08/12/2019-patient is comfortable in the chair not in distress. Triglycerides and lipase slightly improved. Triglycerides today 594, lipase is 384. On IV fluids 75 cc/h, and on full liquid diet. plan is to recheck the labs tomorrow. 08/13/2019-no acute events in the last 24 hours. Afebrile. Triglycerides came down to 542, lipase improved to 370. Started on diabetic diet and to stop IV fluids. 08/14/2019-patient is doing well. Able to tolerate the diabetic diet yesterday. Lipase is 353 improving and triglycerides 458 improving. Latest glucose is 247. Patient is stable to go home today and he needs to follow-up with his primary care physician in 3 to 5 days. Physical Exam Vital Signs: Temp Pulse Resp BP Pulse Ox 97.9 F 76 18 136/76 H 98 08/14/19 10:11 08/14/19 10:11 08/14/19 10:11 08/14/19 10:11 08/14/19 10:11 Intake & Output 08/13/19 08/14/19 08/15/19 06:59 06:59 06:59 Intake Total 5139 1243 Output Total 3275 1300 Balance 1864 -57 Weight 115.8 kg 111.9 kg General appearance: PRESENT: no acute distress, morbidly obese Head exam: PRESENT: atraumatic Eye exam: PRESENT: PERRLA Mouth exam: PRESENT: moist, tongue midline Neck exam: ABSENT: carotid bruit, JVD, lymphadenopathy, thyromegaly Respiratory exam: PRESENT: decreased breath sounds Cardiovascular exam: PRESENT: RRR. ABSENT: diastolic murmur, rubs, systolic murmur GI/Abdominal exam: PRESENT: normal bowel sounds, soft. ABSENT: distended, guarding, mass, organolmegaly, rebound, tenderness Rectal exam: PRESENT: deferred Extremities exam: PRESENT: full ROM. ABSENT: calf tenderness, clubbing, pedal edema Neurological exam: PRESENT: alert, awake, oriented to person, oriented to place, oriented to time, oriented to situation, CN II-XII grossly intact. ABSENT: motor sensory deficit Psychiatric exam: PRESENT: appropriate affect, normal mood. ABSENT: homicidal ideation, suicidal ideation Skin exam: PRESENT: dry, intact, warm. ABSENT: cyanosis, rash Results Laboratory Results: WBC 10.3 10^3/uL (4.0-10.5) 08/13/19 05:38 RBC 4.42 10^6/uL (4.35-5.55) 08/13/19 05:38 Hgb 11.5 g/dL (13.5-17.0) L 08/13/19 05:38 Hct 33.6 % (37.9-51.0) L 08/13/19 05:38 MCV 76 fl (80-97) L 08/13/19 05:38 MCH 26.1 pg (27.0-33.4) L 08/13/19 05:38 MCHC 34.3 g/dL (32.0-36.0) 08/13/19 05:38 RDW 14.8 % (11.5-14.0) H 08/13/19 05:38 Plt Count 476 10^3/uL (150-450) H 08/13/19 05:38 Lymph % (Auto) Not Reportable 08/13/19 05:38 [place] % (Auto) Not Reportable 08/13/19 05:38 Eos % (Auto) Not Reportable 08/13/19 05:38 Baso % (Auto) Not Reportable 08/13/19 05:38 Absolute Neuts (auto) Not Reportable 08/13/19 05:38 Absolute Lymphs (auto) Not Reportable 08/13/19 05:38 Absolute Monos (auto) Not Reportable 08/13/19 05:38 Absolute Eos (auto) Not Reportable 08/13/19 05:38 Absolute Basos (auto) Not Reportable 08/13/19 05:38 Total Counted 100 08/13/19 05:38 Seg Neutrophils % Not Reportable 08/13/19 05:38 Seg Neuts % (Manual) 63 % (42-78) 08/13/19 05:38 Band Neutrophils % 3 % (3-5) 08/13/19 05:38 Lymphocytes % (Manual) 29 % (13-45) 08/13/19 05:38 Monocytes % (Manual) 5 % (3-13) 08/13/19 05:38 Eosinophils % (Manual) 0 % (0-6) 08/13/19 05:38 Basophils % (Manual) 0 % (0-2) 08/13/19 05:38 Abs Neuts (Manual) 6.8 10^3/uL (1.7-8.2) 08/13/19 05:38 Abs Lymphs (Manual) 3.0 10^3/uL (0.5-4.7) 08/13/19 05:38 Abs Monocytes (Manual) 0.5 10^3/uL (0.1-1.4) 08/13/19 05:38 Absolute Eos (Manual) 0.0 10^3/uL (0.0-0.6) 08/13/19 05:38 Abs Basophils (Manual) 0.0 10^3/uL (0.0-0.2) 08/13/19 05:38 Platelet Comment ADEQUATE 08/13/19 05:38 Polychromasia 1+ 08/13/19 05:38 Hypochromasia 1+ 08/13/19 05:38 Anisocytosis 1+ 08/13/19 05:38 Microcytosis 2+ 08/13/19 05:38 VBG pH 7.24 (7.30-7.42) L 08/07/19 16:45 VBG pCO2 33.0 mmHg (35-63) L 08/07/19 16:45 VBG HCO3 13.9 mmol/L (20-32) L 08/07/19 16:45 VBG Base Excess -12.3 mmol/L 08/07/19 16:45 Sodium 133.7 mmol/L (137-145) L 08/13/19 05:38 Potassium 4.1 mmol/L (3.6-5.0) 08/13/19 05:38 Chloride 99 mmol/L (98-107) 08/13/19 05:38 Carbon Dioxide 23 mmol/L (22-30) 08/13/19 05:38 Anion Gap 12 (5-19) 08/13/19 05:38 BUN 8 mg/dL (7-20) 08/13/19 05:38 Creatinine 0.63 mg/dL (0.52-1.25) 08/13/19 05:38 Est GFR ( Amer) > 60 (>60) 08/13/19 05:38 Est GFR (Non-Af Amer) Cancelled 08/08/19 02:50 Est GFR (MDRD) Non-Af > 60 (>60) 08/13/19 05:38 Glucose 151 mg/dL (75-110) H 08/13/19 05:38 POC Glucose 101 mg/dL (70-110) 08/14/19 07:39 Calcium 10.0 mg/dL (8.4-10.2) 08/13/19 05:38 Magnesium 1.5 mg/dL (1.6-2.3) L 08/13/19 05:38 Total Bilirubin 1.1 mg/dL (0.2-1.3) 08/13/19 05:38 Direct Bilirubin 0.2 mg/dL (0.0-0.4) 08/13/19 05:38 Neonat Total Bilirubin Not Reportable 08/13/19 05:38 Neonat Direct Bilirubin Not Reportable 08/13/19 05:38 Neonat Indirect Bili Not Reportable 08/13/19 05:38 AST 49 U/L (17-59) 08/13/19 05:38 ALT 67 U/L (<50) H 08/13/19 05:38 Alkaline Phosphatase 102 U/L (38-126) 08/13/19 05:38 Troponin I 0.016 ng/mL 08/07/19 19:42 Total Protein 7.7 g/dL (6.3-8.2) 08/13/19 05:38 Albumin 4.0 g/dL (3.5-5.0) 08/13/19 05:38 Triglycerides 458 mg/dL (<150) H 08/14/19 04:59 Cholesterol 266.95 mg/dL (0-200) H 08/08/19 04:16 LDL Cholesterol Direct < 30 mg/dL (<100) 08/08/19 04:16 VLDL Cholesterol, Calc UNABLE TO CALCULATE 08/08/19 04:16 HDL Cholesterol 30 mg/dL (>40) L 08/08/19 04:16 Lipase 353.0 U/L (23-300) H 08/14/19 04:59 EGFR Cancelled 08/08/19 02:50 Urine Color STRAW 08/07/19 14:57 Urine Appearance CLEAR 08/07/19 14:57 Urine pH 5.0 (5.0-9.0) 08/07/19 14:57 Ur Specific [place] 1.026 08/07/19 14:57 Urine Protein >=500 mg/dL (NEGATIVE) H 08/07/19 14:57 Urine Glucose (UA) >=500 mg/dL (NEGATIVE) H 08/07/19 14:57 Urine Ketones 80 mg/dL (NEGATIVE) H 08/07/19 14:57 Urine Blood MODERATE (NEGATIVE) H 08/07/19 14:57 Urine Nitrite NEGATIVE (NEGATIVE) 08/07/19 14:57 Urine Bilirubin NEGATIVE (NEGATIVE) 08/07/19 14:57 Urine Urobilinogen NEGATIVE mg/dL (<2.0) 08/07/19 14:57 Ur Leukocyte Esterase NEGATIVE (NEGATIVE) 08/07/19 14:57 Urine WBC (Auto) 1 /HPF 08/07/19 14:57 Urine RBC (Auto) 1 /HPF 08/07/19 14:57 Squamous Epi Cells Auto <1 /HPF 08/07/19 14:57 Urine Mucus (Auto) RARE /LPF 08/07/19 14:57 Urine Ascorbic Acid NEGATIVE (NEGATIVE) 08/07/19 14:57 08/07/19 19:42 Troponin I 0.016 Impressions: Abdomen/Pelvis CT 08/07/19 16:24 IMPRESSION: 1. Acute pancreatitis with trace free fluid at the left upper quadrant. 2. Hepatomegaly. Fatty infiltration of the liver. Plan Plan of Treatment: Diet exercise weight loss lifestyle modifications discussed with patient. Patient is strongly advised to follow-up with primary care physician in 3 to 5 days. Time Spent: Greater than 30 Minutes Stroke Is this a Stroke Patient?: No Acute Heart Failure - Is this a Heart Failure Patient?: No
--- NOTE | 2019-08-14 17:23 | EKG REPORT ---
SEVERITY:- BORDERLINE ECG - SINUS RHYTHM BORDERLINE T WAVE ABNORMALITIES : Confirmed by: Itzel Irving MD 14-Aug-2019 17:22:02
== END 2019-08-14 11:09 | disposition home or self-care (01) | DRG 438 ==
LOC: ER 14:20 → EH 18:21 → 5 08-08 01:20
PROVIDERS: ADMIT Family Medicine; ATTEND Internal Medicine
DX: K85.90 Acute pancreatitis without necrosis or infection, unspecified (principal); E10.10 Type 1 diabetes mellitus with ketoacidosis without coma; E87.1 Hypo-osmolality and hyponatremia; E78.1 Pure hyperglyceridemia; I25.2 Old myocardial infarction; Z79.4 Long term (current) use of insulin
CPT/HCPCS: 36415; 74177; 80048; 80053; 80061; 80076; 81001; 82803; 82962; 83690; 83735; 84478; 84484; 85025; 85027; 93005; 93010; 96361; 96374; 96375; 96376; 99291; J0360; J1644; J1815; J2270; J2405; J3480; J3490; J7030; J7050; J7060